=== PATIENT | male | born 1980 | race Caucasian/White ===

== ENCOUNTER 2017-07-16 01:41 | Day surgery (SDC) | payer SELFPAY ==
[~2017-07-16] VITALS: Ht 175.3 cm; Wt 99.8 kg
[~2017-07-16 01:41] MED LIST: BP MED; CIPR500T78 PO; CYCL10TA9 PO; HYDR-757 PO; ONDA-42 SL; PROM25SU10 PR
[2017-07-16] MEDS ORDERED: KETOROLAC 30 MG/ML VIAL IM ONE (02:15)
--- NOTE | 2017-07-16 02:15 | ED Back Pain ---
General Stated Complaint: KNOT AT BOTTOM OF SPINE Source of Information: Patient Exam Limitations: No Limitations History of Present Illness Time Seen by Provider: 02:05 Initial Comments Patient presents to ER by private conveyance with a chief complaint for the past 2 days she's had progressively worsening pain just over his butt crack with a small tumor that started about the size of a golf ball and has grown today to the half size of his face. Says the pain is excruciating he cannot sit on it and aspirate painful to walk. He's had no numbness, tingling, weakness, falls, trauma, incontinence of bowel or bladder or other paresthesias. It has not drained or the company head. He has taken Tylenol and Motrin which only marginally helps. He denies any fevers, chills, rash, shortness of breath, diarrhea, nausea. Allergies and Home Medications Allergies Coded Allergies: Penicillins (Verified Allergy, Mild, RASH, 06/28/12) Home Medications [Bp Med] , (Reported) Constitutional: No chills, No diaphoresis EENTM: No ear pain, No blurred vision Respiratory: No cough, No short of breath Genitourinary: No decreased output, No discharge, No dysuria Musculoskeletal: see HPI, No joint pain Skin: No pruritus, No rash Psychiatric/Neurological: Denies Headache, Denies Numbness, Denies Paresthesia Past Awmjbld-Hvwjhq-Obyjuq Hx Patient Social History Alcohol Use: Denies Use Recreational Drug Use: No Smoking Status: Current Everyday Smoker Type Used: Cigarettes (0.5 ppd) Recent Foreign Travel: No Contact w/Someone Who Travel: No Immunizations Up To Date Date of Influenza Vaccine: May 31, 2012 Cardiovascular Cardiac Disorders: Hypertension Physical Exam Vital Signs Vital Sign - Last 12Hours 07/16/17 01:58 Temp 99.2 Pulse 102 Resp 26 B/P (MAP) 137/58 (84) Pulse Ox 95 O2 Delivery Room Air Capillary Refill : General Appearance: WD/WN, Mild Distress HEENT: Normal ENT Inspection, Pharynx Normal Cardiovascular: No Edema, No Murmur Respiratory: No Accessory Muscle Use, No Respiratory Distress Peripheral Pulses: 2+ Dorsalis Pedis (R), 2+ Left Dors-Pedis (L), 2+ Radial Pulses (R), 2+ Radial Pulses (L) Gastrointestinal: Non Tender, Soft Genital/Rectal: Normal Rectal Exam Back: Other (4 x 6 cm firm, and mobile indurated very tender mass over the sacrum just at the superior portion of the gluteal cleft area there is no pore, discharge or erythema.) Extremity: Normal Capillary Refill, Non Tender Neurologic/Psychiatric: Alert, Oriented x3 Skin: Normal Color, Warm/Dry Progress/Results/Core Measures Results/Orders Lab Results Laboratory Tests Test 07/16/17 02:40 Range/Units White Blood Count 11.2 H 4.3-11.0 10^3/uL Red Blood Count 4.66 4.35-5.85 10^6/uL Hemoglobin 15.1 13.3-17.7 G/DL Hematocrit 42 40-54 % Mean Corpuscular Volume 90 80-99 FL Mean Corpuscular Hemoglobin 32 25-34 PG Mean Corpuscular Hemoglobin Concent 36 32-36 G/DL Red Cell Distribution Width 13.0 10.0-14.5 % Platelet Count 208 130-400 10^3/uL Mean Platelet Volume 9.0 7.4-10.4 FL Neutrophils (%) (Auto) 80 H 42-75 % Lymphocytes (%) (Auto) 10 L 12-44 % Monocytes (%) (Auto) 9 0-12 % Eosinophils (%) (Auto) 1 0-10 % Basophils (%) (Auto) 0 0-10 % Neutrophils # (Auto) 8.9 H 1.8-7.8 X 10^3 Lymphocytes # (Auto) 1.1 1.0-4.0 X 10^3 Monocytes # (Auto) 1.0 0.0-1.0 X 10^3 Eosinophils # (Auto) 0.2 0.0-0.3 10^3/uL Basophils # (Auto) 0.0 0.0-0.1 10^3/uL Sodium Level 138 135-145 MMOL/L Potassium Level 3.7 3.6-5.0 MMOL/L Chloride Level 106 98-107 MMOL/L Carbon Dioxide Level 21 21-32 MMOL/L Anion Gap 11 5-14 MMOL/L Blood Urea Nitrogen 18 7-18 MG/DL Creatinine 1.02 0.60-1.30 MG/DL Estimat Glomerular Filtration Rate > 60 BUN/Creatinine Ratio 18 Glucose Level 89 70-105 MG/DL Calcium Level 9.2 8.5-10.1 MG/DL Total Bilirubin 1.0 0.1-1.0 MG/DL Aspartate Amino Transf (AST/SGOT) 20 5-34 U/L Alanine Aminotransferase (ALT/SGPT) 36 0-55 U/L Alkaline Phosphatase 72 40-136 U/L Total Protein 6.8 6.4-8.2 GM/DL Albumin 3.9 3.2-4.5 GM/DL My Orders Orders - ALFA HOLLOWAY Ketorolac Injection (Toradol Injection) (07/16/17 02:15) Ct Abdomen/Pelvis Wo (07/16/17 02:06) Cbc With Automated Diff (07/16/17 02:15) Comprehensive Metabolic Panel (07/16/17 02:15) Lidocaine 2% Injection 20 Ml (Xylocaine (07/16/17 05:39) Medications Given in ED Current Medications Medications Dose Ordered Sig/Monika Route Start Time Stop Time Status Last Admin Dose Admin Ketorolac Tromethamine 15 mg ONCE ONCE IM 07/16/17 02:15 07/16/17 02:16 DC 07/16/17 02:16 15 MG Vital Signs/I&O Vital Sign - Last 12Hours 07/16/17 01:58 Temp 99.2 Pulse 102 Resp 26 B/P (MAP) 137/58 (84) Pulse Ox 95 O2 Delivery Room Air Progress Note #1: Time: 02:13 Progress Note first on the differential was an abscess however the lesion is fairly firm and fixed and an unusual place without any pore or discharge or erythema so for we open it would be de santiago to image it and see if tracks anywhere if it's an abscess or if it's a different lesion or malignancy. We'll get some basic blood work. Progress Note #2: Time: 06:09 Progress Note Patient is unable to tolerate an incision and drain or even to have the ring block started so we will talk General Surgery. Diagnostic Imaging Diagonstic Imaging: CT Plain Films/CT/US/NM/MRI: abdomen, pelvis Comments Soft tissue collection of the sacrococcygeal spine possible with peripheral wall thickening measuring 2.7 x 2 x 5.8 cm. There are surrounding inflammatory changes question infection or abscess, mass. Reviewed: Reviewed by Me Consults Consults : Consulting Physician: A Departure Communication (Admissions) Time/Spoke to Admitting Phy: 06:[address] Thapa will see the patient and get him into his surgery scheduled today. He would like him made observation Impression Impression: Primary Impression: Abscess Disposition: 09 ADMITTED INPATIENT Condition: Stable Admissions Decision to Admit Reason: Admit from ER (General) Decision to Admit/Date: Jul 16, 2017 Time/Decision to Admit Time: 06:12 Departure-Patient Inst. Referrals: SHREYA MCCARTHY MD (PCP/Family) Primary Care Physician Work/School Note: Work Release Form Date Seen in the Emergency Department: Jul 16, 2017 Return to Work: Jul 20, 2017 Restrictions: No Restrictions Copy Copies To 1: SHREYA MCCARTHY MD, TITUS J Jul 16, 2017 02:15
[2017-07-16 02:46] LABS: BASOPHILS % (AUTO) 0 % (0-10); EOSINOPHILS # (AUTO) 0.2 10^3/uL (0.0-0.3); EOSINOPHILS % (AUTO) 1 % (0-10); LYMPHOCYTES # (AUTO) 1.1 X 10^3 (1.0-4.0); LYMPHOCYTES % (AUTO) 10 % (12-44); MEAN CORPUSCULAR HEMOGLOBIN 32 PG (25-34); MEAN CORPUSCULAR HGB CONC 36 G/DL (32-36); MEAN CORPUSCULAR VOLUME 90 FL (80-99); MONOCYTES % (AUTO) 9 % (0-12); NEUTROPHILS # (AUTO) 8.9 X 10^3 (1.8-7.8); NEUTROPHILS % (AUTO) 80 % (42-75); PLATELET COUNT 208 10^3/uL (130-400); RED BLOOD COUNT 4.66 10^6/uL (4.35-5.85); WHITE BLOOD COUNT 11.2 10^3/uL (4.3-11.0)
[2017-07-16 03:16] LABS: ALANINE AMINOTRANSFERASE 36 U/L (0-55); ALBUMIN 3.9 GM/DL (3.2-4.5); ANION GAP 11 MMOL/L (5-14); ASPARTATE AMINO TRANSFERASE 20 U/L (5-34); BLOOD UREA NITROGEN 18 MG/DL (7-18); BUN/CREATININE RATIO 18; CALCIUM 9.2 MG/DL (8.5-10.1); CARBON DIOXIDE 21 MMOL/L (21-32); CHLORIDE 106 MMOL/L (98-107); CREATININE SERUM 1.02 MG/DL (0.60-1.30); GFR ESTIMATED > 60; GLUCOSE 89 MG/DL (70-105); POTASSIUM 3.7 MMOL/L (3.6-5.0); SODIUM 138 MMOL/L (135-145); TOTAL PROTEIN 6.8 GM/DL (6.4-8.2)
[2017-07-16] MEDS ORDERED: LIDOCAINE 2% 20 ML (XYLOCAINE) VIAL ONE (05:39)
[2017-07-16] MEDS ORDERED: fentaNYL INJECTION 100 MCG/2 ML AMP IVP ONE (06:15)
--- NOTE | 2017-07-16 06:32 | Diagnostic Imaging Report ---
PROCEDURE: CT abdomen and pelvis without contrast. TECHNIQUE: Multiple contiguous axial images were obtained through the abdomen and pelvis without the use of intravenous contrast. INDICATION: Palpable abnormality at base of spine with erythema Unenhanced images of the liver and spleen reveal no focal abnormality. There is no evidence of gallbladder, pancreatic or adrenal gland lesion. Tiny nonobstructing central renal calculi are seen bilaterally. There is no hydronephrosis or hydroureter. There is no evidence of ureteric stone. The appendix has a normal appearance. There are calcified phleboliths seen bilaterally in the pelvis. There is a focal region of induration superficial to the sacrococcygeal spine measuring approximately 2.7 x 2.0 x 5.8 cm. There is suggestion of central low density which may represent collection of fluid. There is no free fluid in the abdomen or pelvis. No other localized fluid collection is identified. IMPRESSION: No acute abnormality is seen within the abdomen or pelvis, however, there is a superficial area of induration and possible thickwalled fluid collection in the subcutaneous tissues at the level of the sacrum which corresponds to patient's abnormality. Abscess is not excluded. Dictated by: Dictated on workstation # [id number]
[2017-07-16] MEDS ORDERED: ONDANSETRON 4 MG/2 ML (SDV) Z0FRAN IV PRN (07:15)
[2017-07-16 08:00] VITALS: BP 122/73
[2017-07-16] MEDS ORDERED: CLINDAMYCIN INJECTION 600 MG in NS (IVPB) 50 ML IV SCH (09:00)
[2017-07-16] MEDS: LACTATED RINGERS 1,000 ML IV SCH ×3 (09:59→23:01)
[2017-07-16] MEDS: fentaNYL INJECTION 100 MCG/2 ML AMP IV PRN ×4 (10:13→23:01)
--- OUTSIDE RECORDS SUMMARY | 2017-07-16 10:28 | XMS REPORT ---
Author Author PRANAV TAYLOR Organization [facility] Address [address] [place] [address] Care Team Providers Care Director Of Reimbursement Name Role Phone PRANAV TAYLOR Unavailable PROBLEMS Unknown Problems ALLERGIES Substance Reaction Event Type Date Status Penicillin V Potassium Unknown Drug Allergy Jun, Active SOCIAL HISTORY No smoking Hx information available PLAN OF CARE Activity Details Follow Up prn Reason: VITAL SIGNS Height 68 in 2016-07-16 Weight 231 lbs 2016-07-16 Temperature 98.5 degrees Fahrenheit 2016-07-16 Heart Rate 100 bpm 2016-07-16 Respiratory Rate 18 2016-07-16 BMI 35.12 kg/m2 2016-07-16 Blood pressure systolic 140 mmHg 2016-07-16 Blood pressure diastolic 90 mmHg 2016-07-16 MEDICATIONS Medication Instructions Dosage Frequency Start Date End Date Duration Status Promethazine-Codeine 6.25-10 MG/5ML Orally every 6 hrs 5 ml as needed 6h Jun, Active GuaiFENesin ER 600 MG Orally every 12 hrs 1 tablet as needed 12h Jun, Active RESULTS Name Result Date Reference Range STREP A (IN HOUSE) 2016-07-16 STREP A negative Control + Lot # [id number] Exp date 02/21/2018 PROCEDURES Procedure Date Ordered Related Diagnosis Body Site STREP A ASSAY W/OPTIC Jul 16, 2016 Office Visit, Est Pt., Level 3 Jul 16, 2016 IMMUNIZATIONS No Known Immunizations
--- OUTSIDE RECORDS SUMMARY | 2017-07-16 10:28 | XMS REPORT | Continuity of Care Document ---
Author Author [facility] Address Unknown Phone Unavailable Allergies Active Description Code Type Severity Reaction Onset Reported/Identified Relationship to Patient Clinical Status Yes Penicillins Drug Allergy N/A N/A 07/24/2010 Yes Penicillins [id number] Drug Allergy Mild RASH 06/28/2012 Medications There is no data. Problems Date Dx Coded Attending Type Code Diagnosis Diagnosed By 07/24/2010 NIMO HODGES DO 682.9 CELLULITIS AND ABSCESS OF UNSPECIFIED SITES 04/18/2011 NIMO HODGES DO V04.81 FLU DX (3 YRS AND ABOVE, IM) 04/18/2011 NIMO HODGES DO V06.1 TDAP DX 02/14/2014 SHIELA SPANGLER, KAREN Nieves Ot 110.3 DERMATOPHYTOSIS OF GROIN 06/10/2014 ENDY SOMMER DO Ot 276.51 DEHYDRATION 06/10/2014 ENDY SOMMER DO Ot 558.9 NONINF GASTROENTERIT NEC 06/10/2014 ENDY SOMMER DO Ot 787.01 NAUSEA WITH VOMITING 07/28/2014 ORION FREEMAN APRN Ot 922.31 BACK CONTUSION 07/28/2014 ORION FREEMAN APRN Ot 959.19 OTH INJURY OF OTHER SITES OF TRUNK 07/28/2014 ORION FREEMAN APRN Ot E000.8 OTHER EXTERNAL CAUSE STATUS 07/28/2014 ORION FREEMAN APRN Ot E849.0 ACCIDENT IN HOME 07/28/2014 ORION FREEMAN APRN Ot E880.9 FALL ON STAIR/STEP NEC 04/08/2015 KIM MCCARTHY MD Ot 558.9 NONINF GASTROENTERIT NEC 04/08/2015 KIM MCCARTHY MD Ot 787.01 NAUSEA WITH VOMITING Procedures There is no data. Results Test Result Range Complete blood count (CBC) with automated white blood cell (WBC) differential - 07/16/17 02:40 Blood leukocytes automated count (number/volume) 11.2 10*3/uL 4.3-11.0 Blood erythrocytes automated count (number/volume) 4.66 10*6/uL 4.35-5.85 Venous blood hemoglobin measurement (mass/volume) 15.1 g/dL 13.3-17.7 Blood hematocrit (volume fraction) 42 % 40-54 Automated erythrocyte mean corpuscular volume 90 [foz_us] 80-99 Automated erythrocyte mean corpuscular hemoglobin (mass per erythrocyte) 32 pg 25-34 Automated erythrocyte mean corpuscular hemoglobin concentration measurement ( mass/volume) 36 g/dL 32-36 Automated erythrocyte distribution width ratio 13.0 % 10.0-14.5 Automated blood platelet count (count/volume) 208 10*3/uL 130-400 Automated blood platelet mean volume measurement 9.0 [foz_us] 7.4-10.4 Automated blood neutrophils/100 leukocytes 80 % 42-75 Automated blood lymphocytes/100 leukocytes 10 % 12-44 Blood monocytes/100 leukocytes 9 % 0-12 Automated blood eosinophils/100 leukocytes 1 % 0-10 Automated blood basophils/100 leukocytes 0 % 0-10 Blood neutrophils automated count (number/volume) 8.9 10*3 1.8-7.8 Blood lymphocytes automated count (number/volume) 1.1 10*3 1.0-4.0 Blood monocytes automated count (number/volume) 1.0 10*3 0.0-1.0 Automated eosinophil count 0.2 10*3/uL 0.0-0.3 Automated blood basophil count (count/volume) 0.0 10*3/uL 0.0-0.1 Comprehensive metabolic panel - 07/16/17 02:40 Serum or plasma sodium measurement (moles/volume) 138 mmol/L 135-145 Serum or plasma potassium measurement (moles/volume) 3.7 mmol/L 3.6-5.0 Serum or plasma chloride measurement (moles/volume) 106 mmol/L 98-107 Carbon dioxide 21 mmol/L 21-32 Serum or plasma anion gap determination (moles/volume) 11 mmol/L 5-14 Serum or plasma urea nitrogen measurement (mass/volume) 18 mg/dL 7-18 Serum or plasma creatinine measurement (mass/volume) 1.02 mg/dL 0.60-1.30 Serum or plasma urea nitrogen/creatinine mass ratio 18 NRG Serum or plasma creatinine measurement with calculation of estimated glomerular filtration rate > NRG Serum or plasma glucose measurement (mass/volume) 89 mg/dL 70-105 Serum or plasma calcium measurement (mass/volume) 9.2 mg/dL 8.5-10.1 Serum or plasma total bilirubin measurement (mass/volume) 1.0 mg/dL 0.1-1.0 Serum or plasma alkaline phosphatase measurement (enzymatic activity/volume) 72 U/L 40-136 Serum or plasma aspartate aminotransferase measurement (enzymatic activity/ volume) 20 U/L 5-34 Serum or plasma alanine aminotransferase measurement (enzymatic activity/volume ) 36 U/L 0-55 Serum or plasma protein measurement (mass/volume) 6.8 g/dL 6.4-8.2 Serum or plasma albumin measurement (mass/volume) 3.9 g/dL 3.2-4.5 Encounters ACCT No. Visit Date/Time Discharge Status Pt. Type Provider Facility Loc./Unit Complaint [id number] 06/02/2013 14:55:00 06/02/2013 23:59:59 CLS Outpatient NIMO HODGES DO [id number] 12/31/2015 11:15:00 12/31/2015 23:59:59 CLS Outpatient SHREYA MCCARTHY MD Via [facility] RAD [id number] 04/07/2015 22:24:00 04/08/2015 00:12:00 DIS Emergency KIM MCCARTHY MD Via [facility] ER [id number] 07/28/2014 13:10:00 07/28/2014 15:45:00 DIS Emergency ORION FREEMAN APRN [facility] ER [id number] 06/10/2014 04:49:00 06/10/2014 07:08:00 DIS Emergency ENDY SOMMER DO [facility] ER [id number] 02/14/2014 06:46:00 02/14/2014 08:39:00 DIS Emergency KAREN KUO MD [facility] ER [id number] 01/11/2013 14:16:00 01/11/2013 23:59:59 CLS Outpatient [id number] 07/16/2017 02:47:00 Document Registration
--- NOTE | 2017-07-16 11:18 | History & Physicial ---
History of Present Illness History of Present Illness Reason for visit/HPI pain and swelling over the sacral region with the finding of an abscess, requiring incision and drainage Date of Admission Jul 16, 2017 at 6:12 am Date Seen by Provider: Jul 16, 2017 Time Seen by Provider: 08:10 I consulted on this patient on 07/16/17 11:16 Attending Physician Mateusz Arnett MD Admitting Physician Misael Araiza MD Consult Allergies and Home Medications Allergies Coded Allergies: Penicillins (Verified Allergy, Mild, RASH, 06/28/12) Home Medications No Active Prescriptions or Reported Meds Past Mxjklub-Ddwonf-Mwkrdl Hx Patient Social History Marrital Status: Employed/Student: employed Alcohol Use: Denies Use Recreational Drug Use: No Smoking Status: Current Everyday Smoker Type Used: Cigarettes 2nd Hand Smoke Exposure: Yes Recent Foreign Travel: No Contact w/other who traveled: No Recent Hopitalizations: No Recent Infectious Disease Expo: No Immunizations Up To Date Date of Influenza Vaccine: May 31, 2012 Surgeries No Respiratory No Cardiovascular Yes Hypertension Neurological No Gastrointestinal No Musculoskeletal No Endocrine History of Endocrine Disorders: No Cancer No Psychosocial History of Psychiatric Problem: No Integumentary History of Skin or Integumenta: No Blood Transfusions History of Blood Disorders: No Constitutional: fever, malaise EENTM: no symptoms reported Respiratory: no symptoms reported Cardiovascular: no symptoms reported Gastrointestinal: see HPI Genitourinary: no symptoms reported Musculoskeletal: no symptoms reported Skin: see HPI Psychiatric/Neurological: No Symptoms Reported Physical Exam Vital Signs Vital Sign - Last 12Hours 07/16/17 01:58 Temp 99.2 Pulse 102 Resp 26 B/P (MAP) 137/58 (84) Pulse Ox 95 O2 Delivery Room Air Capillary Refill : Less Than 3 Seconds General Appearance: Moderate Distress HEENT: Normal ENT Inspection Neck: Normal Inspection Respiratory: Lungs Clear Cardiovascular: Regular Rate, Rhythm Gastrointestinal: Non Tender, Soft Rectal: Deferred Back: Normal Inspection Extremity: Normal Inspection Neurologic/Psychiatric: Alert, Oriented x3 Skin: Warm/Dry, Other Comments 3 cm abscess over the sacral region Assessment/Plan Assessment and Plan abscess over the sacral region Problems: MATEUSZ ARNETT MD Jul 16, 2017 11:18 am
--- NOTE | 2017-07-16 11:18 | Progress Note-Pre Operative ---
Pre-Operative Progress Note H&P Reviewed The H&P was reviewed, patient examined and no changes noted. Date Seen by Provider: Jul 16, 2017 Time Seen by Provider: 08:10 Date H&P Reviewed: Jul 16, 2017 Time H&P Reviewed: 11:18 Pre-Operative Diagnosis: Sacral abscess MATEUSZ ARNETT MD Jul 16, 2017 11:18 am
[2017-07-16 12:00] VITALS: BP 122/61
[2017-07-16] MEDS ORDERED: fentaNYL INJECTION 250 MCG/5 ML AMP ONE (14:29)
[2017-07-16] MEDS ORDERED: MIDAZOLAM 2 MG/2 ML (VERSED) VIAL ONE (14:29)
--- NOTE | 2017-07-16 15:06 | Operative Report ---
Operative Report Date of Procedure/Surgery Jul 16, 2017 Surgeon (s) MATEUSZ ARNETT MD Pigment Making Supervisor (s): N/A Post-Operative Diagnosis Same Procedure Performed Incision and drainage Description of Procedure Anesthesia Type: General Estimated blood loss (mL): Minimal Specimen(s) collected/removed Pus for culture and sensitivity Description of the Procedure Indication for the procedure: This young man presented with an abscess over the sacral region, requiring formal incision and drainage. Informed consent was obtained after reviewing the procedure in detail. Description of procedure: He was initially placed supine on the bed and general anesthesia induced. Subsequently, he was placed in right lateral decubitus position, to achieve reasonable exposure of the involved area. After adequate antiseptic preparation, a 3 cm vertical incision was made and the abscess cavity evacuated. Hemostasis was achieved using cautery and and a Ana drain left in the cavity to promote preoperative drainage. It was secured using a silk suture. A nonadherent dressing was then applied He tolerated the procedure well, was to turned supine before being extubated and taken to the recovery room in a stable condition. Findings of the Procedure See op report Allergies and Home Medications Allergies Coded Allergies: Penicillins (Verified Allergy, Mild, RASH, 06/28/12) Home Medications No Active Prescriptions or Reported Meds MATEUSZ ARNETT MD Jul 16, 2017 3:06 pm
[2017-07-16] MEDS ORDERED: HYDR-3812 PO (15:08)
--- NOTE | 2017-07-16 15:09 | Discharge Inst-Simple/Standard ---
Discharge Inst-Standard Discharge Medications New, Converted or Re-Newed RX: RX on Chart Patient Instructions/Follow Up Plan of Care/Instructions/FU: Change dressing with an AVD pad once or twice a day. Follow-up with my nurse in a week to have the drain removed Activity as Tolerated: Yes Discharge Diet: No Restrictions MATEUSZ ARNETT MD Jul 16, 2017 3:09 pm
[2017-07-16] MEDS ORDERED: SEVOFLURANE (ULTANE) 15 ML INHAL SOLN ONE (15:14)
[2017-07-16] MEDS ORDERED: proPOfol 200 MG/20 ML (DIPRIVAN) VIAL IV ONE (15:14)
[2017-07-16] MEDS ORDERED: LIDOCAINE PF 2% 5 ML (XYLOCAINE) VIAL ONE (15:14)
[2017-07-16] MEDS ORDERED: DEXAMETHASONE 10 MG/ML (DECADRON) 1 ML VIAL ONE (15:14)
[2017-07-16] MEDS ORDERED: fentaNYL INJECTION 100 MCG/2 ML AMP IVP PRN (15:15)
[2017-07-16] MEDS ORDERED: ONDANSETRON 4 MG/2 ML (SDV) Z0FRAN IVP PRN (15:15)
[2017-07-16] MEDS ORDERED: CATHETER FLUSH 10 ML SYR IV PRN (15:30)
[2017-07-16] MEDS: HYDROmorphone (DILAUDID) 2 MG/ML VIAL IVP PRN ×2 (15:45→15:55)
[2017-07-16 17:00] VITALS: BP 118/76
[2017-07-16] MEDS: CLINDAMYCIN INJECTION 600 MG in NS (IVPB) 50 ML IV SCH (17:52)
[2017-07-16] MEDS: HYDROcodone/APAP 7.5 MG/325 MG (LORTAB, LORCET PLUS) TABLET PO PRN (19:28)
[2017-07-16 20:00] VITALS: BP 121/64
[2017-07-17 00:15] VITALS: BP 124/69
[2017-07-17] MEDS: HYDROcodone/APAP 7.5 MG/325 MG (LORTAB, LORCET PLUS) TABLET PO PRN ×2 (01:34→07:32)
[2017-07-17] MEDS: CLINDAMYCIN INJECTION 600 MG in NS (IVPB) 50 ML IV SCH ×2 (02:02→09:02)
[2017-07-17 04:00] VITALS: BP 131/77
[2017-07-17 08:05] VITALS: BP 125/55
[2017-07-17] MEDS ORDERED: INFLUENZA TRIvalent 2017-2018 0.5 ML/45 MCG SYR IM ONE (08:30)
[2017-07-17] MEDS: LACTATED RINGERS 1,000 ML IV SCH (09:02)
[2017-07-17 10:30] VITALS: BP 125/55
--- NOTE | 2017-07-17 10:55 | Progress Note-Standard ---
Standard Progress Note Progress Notes/Assess & Plan Date Seen by Provider: Jul 17, 2017 Time Seen by Provider: 09:58 Progress/Assessment & Plan pain control adequate. Afebrile. Could be discharged home Final Diagnosis sacral abscess MATEUSZ ARNETT MD Jul 17, 2017 10:55 am
--- OUTSIDE RECORDS SUMMARY | 2017-07-17 14:47 | XMS REPORT | Continuity of Care Document ---
Author Author Replaced By [facility] Address Unknown Phone Unavailable Allergies Active Description Code Type Severity Reaction Onset Reported/Identified Relationship to Patient Clinical Status Yes Penicillins Drug Allergy N/A N/A 07/24/2010 Yes Penicillins [id number] Drug Allergy Mild RASH 06/28/2012 Medications There [...] plasma albumin measurement (mass/volume) 3.9 g/dL 3.2-4.5 Gram stain microscopy - 07/16/17 14:52 GRAM STAIN RESULT FEW GRAM POS COCCI IN CHAINS (STREP OR RELATED GENUS) NRG Bacteria identification in wound by culture - 07/16/17 14:52 Bacteria identification in wound by culture [id number] NRG QUANTITY OF GROWTH Abundant Growth NRG Encounters ACCT No. Visit Date/Time Discharge Status Pt. Type Provider Facility Loc./Unit Complaint [id number] 06/02/2013 14:55:00 06/02/2013 23:59:59 CLS Outpatient NIMO HODGES DO [id number] 12/31/2015 11:15:00 12/31/2015 23:59:59 CLS Outpatient SHREYA MCCARTHY MD Via [facility] RAD [id number] 04/07/2015 22:24:00 04/08/2015 00:12:00 DIS Emergency KIM MCCARTHY MD [facility] ER [id number] 07/28/2014 13:10:00 07/28/2014 15:45:00 DIS Emergency ORION FREEMAN APRN [facility] ER [id number] 06/10/2014 04:49:00 06/10/2014 07:08:00 DIS Emergency ENDY SOMMER DO [facility] ER [id number] 02/14/2014 06:46:00 02/14/2014 08:39:00 DIS Emergency KAREN KUO MD Via [facility] [id number] 01/11/2013 14:16:00 01/11/2013 23:59:59 [facility] Outpatient [id number] 07/16/2017 02:47:00 Document Registration
== END 2017-07-17 10:20 | disposition home or self-care (01) ==
LOC: EDUNIT# 01:41 → ER 01:43 → 4TH 06:12 → UNDOADMOB 06:12 → SDC 06:12 → 4TH 06:12 → SDC 07-17 10:20 → UNDODISOB 07-17 10:20
PROVIDERS: ATTEND Surgery
DX: L02.31 Cutaneous abscess of buttock (principal); I10 Essential (primary) hypertension; F17.210 Nicotine dependence, cigarettes, uncomplicated
CPT/HCPCS: 36415; 74176; 80053; 85025; 87070; 87075; 87081; 87101; 87116; 87205

== ENCOUNTER 2017-07-28 09:03 | Emergency (ER) | payer SELFPAY ==
[~2017-07-28] VITALS: Ht 177.8 cm; Wt 108.9 kg
[~2017-07-28 09:03] MED LIST changes: +ACHD5005 PO
--- NOTE | 2017-07-28 09:37 | Diagnostic Imaging Report ---
INDICATION: Puncture wound. COMPARISON: 01/11/2013. FINDINGS: Three views of the left hand are obtained. No acute fracture, malalignment, or osseous destructive process is seen. No radiopaque foreign bodies are demonstrated. IMPRESSION: Negative left hand. Dictated by: Dictated on workstation # [id number]
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
[2017-07-28] MEDS ORDERED: CLINDAMYCIN 600 MG/4ML (CLEOCIN) VIAL IM ONE (11:00)
[2017-07-28] MEDS ORDERED: SULF1TAB35 PO (11:02)
[2017-07-28] MEDS: KETOROLAC 60 MG/2 ML VIAL IM ONE ×2 (11:07→11:12)
[2017-07-28 11:26] VITALS: BP 145/107
== END 2017-07-28 11:25 | disposition home or self-care (01) ==
LOC: EDUNIT# 09:03 → EEVIPCON 09:05 → ER 09:05
DX: S61.432A Puncture wound without foreign body of left hand, initial encounter (principal); T81.89XA Other complications of procedures, not elsewhere classified, initial encounter; I10 Essential (primary) hypertension; F17.210 Nicotine dependence, cigarettes, uncomplicated; Z91.14 Patient's other noncompliance with medication regimen; W29.8XXA Contact with other powered hand tools and household machinery, initial encounter
CPT/HCPCS: 73130; 99284

== ENCOUNTER 2017-11-22 05:48 | Emergency (ER) | payer OTHER ==
[~2017-11-22] VITALS: Ht 177.8 cm; Wt 108.9 kg
[~2017-11-22 05:48] MED LIST changes: +SULF1TAB35 PO
[2017-11-22] MEDS ORDERED: KETOROLAC 60 MG/2 ML VIAL IM ONE (07:00)
[2017-11-22 07:06] LABS: BILIRUBIN,URINE 1+ (NEGATIVE); CLARITY,URINE VERY CLOUDY; COLOR,URINE OTHER; GLUCOSE, URINE (UA) NEGATIVE (NEGATIVE); KETONES,URINE 1+ (NEGATIVE); LEUKOCYTE ESTERASE ,URINE 2+ (NEGATIVE); NITRITE,URINE POSITIVE (NEGATIVE); PH,URINE 5 (5-9); PROTEIN,URINE 3+ (NEGATIVE); UROBILINOGEN,URINE 1 MG/DL (NORMAL)
--- NOTE | 2017-11-22 07:08 | ED General ---
General Chief Complaint: General Problems/Pain Stated Complaint: LOWER BACK PAIN URINE DARK Nursing Triage Note: c/o L flank pain and dark urine. Nursing Sepsis Screen: No Definite Risk Source of Information: Patient Exam Limitations: No Limitations History of Present Illness Date Seen by Provider: Nov 22, 2017 Time Seen by Provider: 07:06 Initial Comments The patient is a 37-year-old white male who presents with complaint of left flank pain and dark urine. He reports he was awakened about 04 30 with this pain. It is a past history of kidney stone about 10 years ago. There is radiation towards the pubis Timing/Duration: 1-3 Hours Allergies and Home Medications Allergies Coded Allergies: Penicillins (Verified Allergy, Mild, RASH, 06/28/12) Home Medications No Active Prescriptions or Reported Meds Patient Home Medication List Home Medication List Reviewed: Yes Review of Systems Constitutional: see HPI EENTM: no symptoms reported Respiratory: no symptoms reported Cardiovascular: no symptoms reported Gastrointestinal: no symptoms reported Genitourinary: see HPI Musculoskeletal: no symptoms reported Skin: no symptoms reported Psychiatric/Neurological: No Symptoms Reported Past Dolhfwd-Beekan-Qexqji Hx Patient Social History Alcohol Use: Denies Use Recreational Drug Use: No Type Used: Cigarettes 2nd Hand Smoke Exposure: Yes Recent Foreign Travel: No Contact w/Someone Who Travel: No Recent Infectious Disease Expo: No Recent Hopitalizations: No Physical Abuse: No Sexual Abuse: No Immunizations Up To Date Date of Influenza Vaccine: May 31, 2012 Past Medical History Surgeries: Yes ( ABSCESS IN BACK ) Respiratory: No Cardiac: Yes Hypertension Neurological: No Genitourinary: No Gastrointestinal: No Musculoskeletal: No Endocrine: No HEENT: No Cancer: No Psychosocial: No Nursing Suicide Risk Score: 0 Integumentary: No Blood Disorders: No Physical Exam Vital Signs Vital Signs - First Documented 11/22/17 05:55 Temp 96.8 Pulse 93 Resp 18 B/P (MAP) 121/79 (93) Pulse Ox 99 Capillary Refill : Less Than 3 Seconds General Appearance: Mild Distress, Moderate Distress Eyes: Bilateral Eye Normal Inspection HEENT: Normal ENT Inspection Neck: Normal Inspection Respiratory: Chest Non Tender, Lungs Clear, Normal Breath Sounds, No Accessory Muscle Use, No Respiratory Distress Cardiovascular: Regular Rate, Rhythm, No Edema, No Gallop, No JVD, No Murmur, Normal Peripheral Pulses Gastrointestinal: Normal Bowel Sounds, No Organomegaly, No Pulsatile Mass, Non Tender, Soft Back: CVA Tenderness (L) Extremity: Normal Capillary Refill, Normal Inspection, Normal Range of Motion, Non Tender, No Calf Tenderness, No Pedal Edema Neurologic/Psychiatric: Alert, Oriented x3, No Motor/Sensory Deficits, Normal Mood/Affect Skin: Normal Color Lymphatic: No Adenopathy Progress/Results/Core Measures Suspected Sepsis Recent Fever Within 48 Hours: No Infection Criteria Present: None New/Unexplained Altered Menta: No Sepsis Screen: No Definite Risk SIRS Temperature:96.8 Pulse: 93 Respiratory Rate: 18 Blood Pressure 121 /79 Mean: 93 Results/Orders Lab Results Laboratory Tests Test 11/22/17 06:58 Range/Units Urine Color OTHER H Urine Clarity VERY CLOUDY H Urine pH 5 5-9 Urine Specific [place] 1.025 H 1.016-1.022 Urine Protein 3+ H NEGATIVE Urine Glucose (UA) NEGATIVE NEGATIVE Urine Ketones 1+ H NEGATIVE Urine Nitrite POSITIVE H NEGATIVE Urine Bilirubin 1+ H NEGATIVE Urine Urobilinogen 1 NORMAL MG/DL Urine Leukocyte Esterase 2+ H NEGATIVE Urine RBC (Auto) 5+ H NEGATIVE Urine RBC TNTC H /HPF Urine WBC 50-100 H /HPF Urine Squamous Epithelial Cells NONE /HPF Urine Crystals NONE /LPF Urine Bacteria LARGE H /HPF Urine Casts NONE /LPF Urine Mucus MODERATE H /LPF Urine Culture Indicated YES My Orders Orders - NEMESIO DORMAN MD Ketorolac Injection (Toradol Injection) (11/22/17 07:00) Ct Abd/Pelvis Wo(Kidney Stone) (11/22/17 07:05) Hydromorphone Injection (Dilaudid Inject (11/22/17 07:45) Ns Iv 1000 Ml (Sodium Chloride 0.9%) (11/22/17 07:45) Hydromorphone Injection (Dilaudid Inject (11/22/17 07:43) Medications Given in ED Current Medications Medications Dose Ordered Sig/Monika Route Start Time Stop Time Status Last Admin Dose Admin Hydromorphone HCl 2 mg STK-MED ONCE .ROUTE 11/22/17 07:43 11/22/17 07:47 DC 11/22/17 07:48 1 MG Ketorolac Tromethamine 60 mg ONCE ONCE IM 11/22/17 07:00 11/22/17 07:01 DC 11/22/17 06:58 60 MG Vital Signs/I&O 11/22/17 05:55 Temp 96.8 Pulse 93 Resp 18 B/P (MAP) 121/79 (93) Pulse Ox 99 Capillary Refill : Less Than 3 Seconds Blood Pressure Mean: 93 Departure Communication (Admissions) 0739. By my reading there is a 6.8 mm stone in the distal ureter proximal to the UV junction. In addition it appears there is a smaller stone just distal to the renal pelvis. Radiology interpretation is pending. 08 15 the radiologist reported that there were stones in both the right and left proximal ureters at about 3 mm. I discussed with with him by phone the question of what the distal calcification was. He believes that almost certainly this is a phlebolith. Discussed with Dr. Powell at 0830. The patient is to come to his office tomorrow for further planning. Impression Primary Impression: hematuria Additional Impression: proximal ureteral stones Disposition: HOME, SELF-CARE Condition: Stable/Unchanged Departure-Patient Inst. Decision time for Depature: 08:24 Referrals: SHREYA MCCARTHY MD (PCP/Family) Primary Care Physician Add. Discharge Instructions: All discharge instructions reviewed with patient and/or family. Voiced understanding. Lots of liquids Strain all urine Hydrocodone for pain Call Dr. Powell office, [phone], in the morning for appointment Scripts Oxycodone HCl (Oxycodone HCl) 10 Mg Tablet 10 MG PO every 4 hours PRN for pain, #20 TAB Prov: NEMESIO DORMAN MD 11/22/17 NEMESIO DORMAN MD Nov 22, 2017 07:08
[2017-11-22 07:28] LABS: RBC,URINE TNTC /HPF
[2017-11-22 07:29] LABS: BACTERIA,URINE LARGE /HPF; WBC,URINE 50-100 /HPF
--- NOTE | 2017-11-22 07:38 | Diagnostic Imaging Report ---
PROCEDURE: CT urinary tract, rule out kidney stone. TECHNIQUE: Multiple contiguous axial images were obtained through the abdomen and pelvis without the use of intravenous contrast. DATE: 11/22/2017. COMPARISON: CT abdomen and pelvis 07/16/2017. INDICATION: A 37-year-old male, left flank pain. History of renal stones. FINDINGS: There are limitations for evaluation of the abdominal organs, neoplastic processes, abscess, and limited evaluation of the vasculature relating to the lack of intravenous contrast. The visualized portions of the lungs are clear. The heart is not enlarged. There is no identified pericardial effusion. The liver is normal in size and contour. There is a 4 mm low-attenuation lesion in the right lobe of the liver on axial image 47 which is too small to characterize. The gallbladder is contracted. There is no intrahepatic or extrahepatic bile duct dilation. The main pancreatic duct is not abnormally dilated. The pancreatic parenchyma is unremarkable. The spleen is normal in size. The adrenal glands are unremarkable. There is a stone in the right proximal ureter on axial image 79 which measures 3.1 mm in size. There is a stone in the left proximal ureter on axial image 82 which measures 3.0 mm in size. There is no additional identified ureteral stone. There is no hydronephrosis. The urinary bladder is unremarkable in appearance. There are pelvic calcifications compatible with phleboliths. There is mild diverticulosis without evidence of acute diverticulitis. The intestinal tract is not distended. The appendix is well seen on axial image 126 and adjacent sequential images. This is also well seen on coronal image 54 and adjacent sequential images. The appendix is normal. The intestinal tract is not distended. There is no free intraperitoneal air. No drainable fluid collection. There is no free pelvic fluid. There are subcentimeter short axis retroperitoneal lymph nodes. There is no identified abnormally enlarged lymph node within the abdomen or pelvis which meets CT size criteria for adenopathy. There is a 4 mm sclerotic bone lesion in the left femoral neck, which may relate to benign bone island although is not specific. There is no identified acute bony abnormality. IMPRESSION: CT ABDOMEN AND PELVIS. 1. 3 mm stones in the right and left proximal ureters without hydronephrosis. 2. Mild diverticulosis without evidence of acute diverticulitis. Dictated by: Dictated on workstation # [id number]
[2017-11-22] MEDS ORDERED: HYDROmorphone 2 MG/ML VIAL (DILAUDID) ONE (07:43)
[2017-11-22] MEDS ORDERED: NS IV 1000 ML 1,000 ML IV SCH (07:45)
[2017-11-22] MEDS ORDERED: HYDROmorphone 1 MG/ML (DILAUDID) 1 ML SYRINGE IV ONE (07:45)
[2017-11-22] MEDS ORDERED: OXYC10TA7 PO (08:50)
[2017-11-22 09:02] VITALS: BP 152/81
[2017-11-23] MEDS ORDERED: ONDA4TAB8 PO (18:28)
[2017-11-23] MEDS ORDERED: HYDR-87 PO (18:28)
[2017-11-23] MEDS ORDERED: TAMS0.4C98 PO (18:28)
== END 2017-11-22 09:02 | disposition home or self-care (01) ==
LOC: EDUNIT# 05:48 → ER 05:50
DX: N20.1 Calculus of ureter (principal); I10 Essential (primary) hypertension; Z87.2 Personal history of diseases of the skin and subcutaneous tissue; Z77.22 Contact with and (suspected) exposure to environmental tobacco smoke (acute) (chronic)
CPT/HCPCS: 74176; 81000; 87088; 96372

== ENCOUNTER → 2017-11-26 | Outpatient (CLI) | payer OTHER ==
[~2017-11-26] MED LIST changes: +HYDR-87 PO; +KETO10TA PO; +NITR-65 PO; +ONDA4TAB8 PO; +OXYC10TA7 PO; +TAMS0.4C98 PO
--- NOTE | 2017-11-26 15:37 | Diagnostic Imaging Report ---
INDICATION: Ureteral stones. Comparison is made with prior exam from 11/23/2017. FINDINGS: The bowel gas pattern is unremarkable. No definite radiopaque renal calculi are seen. No calcifications along the course of the ureters is seen. There are pelvic calcifications which appear stable to prior exam. IMPRESSION: Stable KUB when compared with examination from 11/23/2017. Dictated by: Dictated on workstation # [id number]
== END ==
LOC: RAD 14:44
PROVIDERS: ATTEND Urology
DX: N20.1 Calculus of ureter (principal)
CPT/HCPCS: 74018

== ENCOUNTER 2017-11-30 05:40 | Outpatient (CLI) | payer SELFPAY ==
[~2017-11-30] VITALS: Ht 180.3 cm; Wt 108.9 kg
[~2017-11-30 05:40] MED LIST changes: -KETO10TA PO; -NITR-65 PO
== END 2017-11-30 15:52 ==
LOC: PREOP 05:40
PROVIDERS: ATTEND Urology
DX: Z01.818 Encounter for other preprocedural examination (principal); N20.1 Calculus of ureter

== ENCOUNTER 2017-12-01 10:16 | Day surgery (SDC) | payer OTHER ==
[~2017-12-01] VITALS: Ht 180.3 cm; Wt 108.9 kg
--- OUTSIDE RECORDS SUMMARY | 2017-12-01 10:29 | XMS REPORT | Continuity of Care Document ---
Author Author [facility] Address Unknown Phone Unavailable Allergies Active Description Code Type Severity Reaction Onset Reported/Identified Relationship to Patient Clinical Status Yes Penicillins Drug Allergy N/A N/A 07/24/2010 Yes Penicillins [id number] Drug Allergy Mild RASH 06/28/2012 Medications There [...] ENDY SOMMER DO Ot 276.51 DEHYDRATION 06/10/2014 NEDY SOMMER DO Ot 558.9 NONINF GASTROENTERIT NEC 06/10/2014 ENDY SOMMER DO Ot 787.01 NAUSEA WITH VOMITING 07/28/2014 ORION FREEMAN APRN Ot 922.31 BACK CONTUSION 07/28/2014 ORION FREEMAN APRN Ot 959.19 OTH INJURY OF OTHER SITES OF TRUNK 07/28/2014 ORION FREEMAN V BELT FINISHER Ot E000.8 OTHER EXTERNAL CAUSE STATUS 07/28/2014 ORION FREEMAN V BELT FINISHER Ot E849.0 ACCIDENT IN HOME 07/28/2014 ORION FREEMAN V BELT FINISHER Ot E880.9 FALL ON STAIR/STEP NEC 04/08/2015 KIM MCCARTHY MD Ot 558.9 NONINF GASTROENTERIT NEC 04/08/2015 KIM MCCARTHY MD Ot 787.01 NAUSEA WITH VOMITING 07/16/2017 FABIO SPANGLER, SHREYA Nieves Ot R05 COUGH 07/16/2017 FABIO SPANGLER, SHREYA Nieves Ot R06.00 DYSPNEA, UNSPECIFIED 07/17/2017 HOPE SPANGLER, MATEUSZ Aragon Ot F17.210 NICOTINE DEPENDENCE, CIGARETTES, UNCOMPL 07/17/2017 HOPE SPANGLER, MATEUSZ Aragon Ot I10 ESSENTIAL (PRIMARY) HYPERTENSION 07/17/2017 HOPE SPANGLER, MATEUSZ Aragon Ot L02.31 CUTANEOUS ABSCESS OF BUTTOCK 07/22/2017 SHREYA MCCARTHY MD Ot R05 COUGH 07/22/2017 SHREYA MCCARTHY MD Ot R06.00 DYSPNEA, UNSPECIFIED 07/22/2017 HOPE SPANGLER, MATEUSZ Aragon Ot F17.210 NICOTINE DEPENDENCE, CIGARETTES, UNCOMPL 07/22/2017 HOPE SPANGLER, MATEUSZ Aragon Ot I10 ESSENTIAL (PRIMARY) HYPERTENSION 07/22/2017 HOPE SPANGLER, MATEUSZ Aragon Ot L02.31 CUTANEOUS ABSCESS OF BUTTOCK 07/25/2017 HOPE SPANGLER, MATEUSZ Aragon Ot F17.210 NICOTINE DEPENDENCE, CIGARETTES, UNCOMPL 07/25/2017 HOPE SPANGLER, MATEUSZ Aragon Ot I10 ESSENTIAL (PRIMARY) HYPERTENSION 07/25/2017 HOPE SPANGLER, MATEUSZ Aragon Ot L02.31 CUTANEOUS ABSCESS OF BUTTOCK 07/28/2017 SHREYA MCCARTHY MD Ot R05 COUGH 07/28/2017 SHREYA MCCARTHY MD Ot R06.00 DYSPNEA, UNSPECIFIED 07/28/2017 ROBINSON RODARTE MD Ot F17.210 NICOTINE DEPENDENCE, CIGARETTES, UNCOMPL 07/28/2017 ROBINSON RODARTE MD Ot I10 ESSENTIAL (PRIMARY) HYPERTENSION 07/28/2017 ROBINSON RODARTE MD Ot S61.432A PUNCTURE WOUND W/O FOREIGN BODY OF LEFT 07/28/2017 ROBINSON RODARTE MD Ot T81.89XA OTH COMPLICATIONS OF PROCEDURES, NEC, IN 07/28/2017 ROBINSON RODARTE MD Ot W29.8XXA CNTCT WITH OTHER POWERED HAND TOOLS AND 07/28/2017 ROBINSON RODARTE MD Ot Z91.14 PATIENT'S OTHER NONCOMPLIANCE WITH MEDIC 07/28/2017 SHREYA MCCARTHY MD Ot R05 COUGH 07/28/2017 SHREYA MCCARTHY MD Ot R06.00 DYSPNEA, UNSPECIFIED 11/22/2017 NEMESIO DORMAN MD, Ot I10 ESSENTIAL (PRIMARY) HYPERTENSION 11/22/2017 NEMESIO DORMAN MD Ot N20.1 CALCULUS OF URETER 11/22/2017 NEMESIO DORMAN MD Ot R10.9 UNSPECIFIED ABDOMINAL PAIN 11/22/2017 NEMESIO DORMAN MD, Ot Z77.22 CNTCT W AND EXPSR TO ENVIRON TOBACCO SMO 11/22/2017 NEMESIO DORMAN MD Ot Z87.2 PERSONAL HISTORY OF DISEASES OF THE SKIN 11/23/2017 KEMAL DOENDY K Ot F17.210 NICOTINE DEPENDENCE, CIGARETTES, UNCOMPL 11/23/2017 KEMAL DO ENDY K Ot I10 ESSENTIAL (PRIMARY) HYPERTENSION 11/23/2017 KEMAL DO ENDY K Ot N20.1 CALCULUS OF URETER 11/23/2017 KEMAL DO ENDY K Ot R10.9 UNSPECIFIED ABDOMINAL PAIN 11/23/2017 KEMAL ENDY K Ot Z87.2 PERSONAL HISTORY OF DISEASES OF THE SKIN 11/23/2017 KEMAL ENDY K Ot Z88.0 ALLERGY STATUS TO PENICILLIN 11/23/2017 KEMAL JOSUEA K Ot Z98.890 OTHER SPECIFIED POSTPROCEDURAL STATES 11/24/2017 NEMESIO DORMAN MD, Ot I10 ESSENTIAL (PRIMARY) HYPERTENSION 11/24/2017 NEMESIO DORMAN MD, Ot N20.1 CALCULUS OF URETER 11/24/2017 NEMESIO DORMAN MD Ot R10.9 UNSPECIFIED ABDOMINAL PAIN 11/24/2017 NEMESIO DORMAN MD, Ot Z77.22 CNTCT W AND EXPSR TO ENVIRON TOBACCO SMO 11/24/2017 NEMESIO DORMAN MD, Ot Z87.2 PERSONAL HISTORY OF DISEASES OF THE SKIN 11/26/2017 SHREYA MCCARTHY MD Ot R05 COUGH 11/26/2017 SHREYA MCCARTHY MD Ot R06.00 DYSPNEA, UNSPECIFIED 11/27/2017 ROBINSON RODARTE MD, Ot F17.210 NICOTINE DEPENDENCE, CIGARETTES, UNCOMPL 11/27/2017 ROBINSON RODARTE MD, Ot I10 ESSENTIAL (PRIMARY) HYPERTENSION 11/27/2017 ROBINSON RODARTE MD, Ot S61.432A PUNCTURE WOUND W/O FOREIGN BODY OF LEFT 11/27/2017 ROBINSON RODARTE MD, Ot T81.89XA OTH COMPLICATIONS OF PROCEDURES, NEC, IN 11/27/2017 ROBINSON RODARTE MD, Ot W29.8XXA CNTCT WITH OTHER POWERED HAND TOOLS AND 11/27/2017 CAYDEN SPANGLER, ROBINSON Williamson Ot Z91.14 PATIENT'S OTHER NONCOMPLIANCE WITH MEDIC 11/27/2017 NEMESIO DORMAN MD Ot I10 ESSENTIAL (PRIMARY) HYPERTENSION 11/27/2017 NEMESIO DORMAN MD Ot N20.1 CALCULUS OF URETER 11/27/2017 NEMESIO DORMAN MD Ot R10.9 UNSPECIFIED ABDOMINAL PAIN 11/27/2017 NEMESIO DORMAN MD Ot Z77.22 CNTCT W AND EXPSR TO ENVIRON TOBACCO SMO 11/27/2017 NEMESIO DORMAN MD, Ot Z87.2 PERSONAL HISTORY OF DISEASES OF THE SKIN 11/27/2017 KEMALJOSUE Garcia DOA Wang Ot F17.210 NICOTINE DEPENDENCE, CIGARETTES, UNCOMPL 11/27/2017 KEMALENDY Garcia DO Ot I10 ESSENTIAL (PRIMARY) HYPERTENSION 11/27/2017 ENDY SOMMER DO Ot N20.1 CALCULUS OF URETER 11/27/2017 ENDY SOMMER DO Ot R10.9 UNSPECIFIED ABDOMINAL PAIN 11/27/2017 ENDY SOMMER DO Ot Z87.2 PERSONAL HISTORY OF DISEASES OF THE SKIN 11/27/2017 JOSUE SOMMER DOA Wang Ot Z88.0 ALLERGY STATUS TO PENICILLIN 11/27/2017 JOSUE SOMMER DOA Wang Ot Z98.890 OTHER SPECIFIED POSTPROCEDURAL STATES 11/27/2017 RASHIDA SPANGLER, JULIETH Nelson Ot N20.1 CALCULUS OF URETER Procedures There is no data. Results Test [...] plasma albumin measurement (mass/volume) 3.9 g/dL 3.2-4.5 Methicillin resistant Staphylococcus aureus (MRSA) screening culture - 07:38 Methicillin resistant Staphylococcus aureus (MRSA) screening culture NEG NRG Bacteria identification in isolate by anaerobe culture - 07/16/17 14:52 Bacteria identification in isolate by anaerobe culture NOANA NRG Gram stain microscopy - 07/16/17 14:52 GRAM STAIN RESULT FEW GRAM POS COCCI IN CHAINS (STREP OR RELATED GENUS) NRG Bacteria identification in wound by culture - 07/16/17 14:52 Bacteria identification in wound by culture [id number] NRG QUANTITY OF GROWTH Abundant Growth NRG Mycobacterium species detection by organism specific culture - 07/16/17 14:52 Mycobacterium species detection by organism specific culture TNP: Duplicate Order NRG Fungus culture - 07/16/17 14:52 FUNGUS REPORT NO FUNGUS GROWTH OBSERVED NRG Complete urinalysis with reflex to culture - 11/22/17 06:58 Urine color determination OTHER NRG Urine clarity determination VERY CLOUDY NRG Urine pH measurement by test strip 5 5-9 Specific gravity of urine by test strip 1.025 1.016- 1.022 Urine protein assay by test strip, semi-quantitative 3+ NEGATIVE Urine glucose detection by automated test strip NEGATIVE NEGATIVE Erythrocytes detection in urine sediment by light microscopy 5+ NEGATIVE Urine ketones detection by automated test strip 1+ NEGATIVE Urine nitrite detection by test strip POSITIVE NEGATIVE Urine total bilirubin detection by test strip 1+ NEGATIVE Urine urobilinogen measurement by automated test strip (mass/volume) 1 mg/dL NORMAL Urine leukocyte esterase detection by dipstick 2+ NEGATIVE Automated urine sediment erythrocyte count by microscopy (number/high power field) TNTC NRG Automated urine sediment leukocyte count by microscopy (number/high power field ) [HPF] NRG Bacteria detection in urine sediment by light microscopy LARGE NRG Squamous epithelial cells detection in urine sediment by light microscopy NONE NRG Crystals detection in urine sediment by light microscopy NONE NRG Casts detection in urine sediment by light microscopy NONE NRG Mucus detection in urine sediment by light microscopy MODERATE NRG Complete urinalysis with reflex to culture YES NRG Bacterial urine culture - 11/22/17 06:58 Bacterial urine culture NG NRG Complete urinalysis with reflex to culture - 11/23/17 16:47 Urine color determination YELLOW NRG Urine clarity determination CLEAR NRG Urine pH measurement by test strip 6 5-9 Specific gravity of urine by test strip 1.015 1.016- 1.022 Urine protein assay by test strip, semi-quantitative NEGATIVE NEGATIVE Urine glucose detection by automated test strip NEGATIVE NEGATIVE Erythrocytes detection in urine sediment by light microscopy 5+ NEGATIVE Urine ketones detection by automated test strip NEGATIVE NEGATIVE Urine nitrite detection by test strip NEGATIVE NEGATIVE Urine total bilirubin detection by test strip NEGATIVE NEGATIVE Urine urobilinogen measurement by automated test strip (mass/volume) NORMAL NORMAL Urine leukocyte esterase detection by dipstick NEGATIVE NEGATIVE Automated urine sediment erythrocyte count by microscopy (number/high power field) TNTC NRG Automated urine sediment leukocyte count by microscopy (number/high power field ) RARE NRG Bacteria detection in urine sediment by light microscopy NEGATIVE NRG Crystals detection in urine sediment by light microscopy NONE NRG Casts detection in urine sediment by light microscopy NONE NRG Mucus detection in urine sediment by light microscopy SMALL NRG Complete urinalysis with reflex to culture NO NRG Complete blood count (CBC) with automated white blood cell (WBC) differential - 11/23/17 16:53 Blood leukocytes automated count (number/volume) 5.4 10*3/uL 4.3-11.0 Blood erythrocytes automated count (number/volume) 4.32 10*6/uL 4.35-5.85 Venous blood hemoglobin measurement (mass/volume) 14.0 g/dL 13.3-17.7 Blood hematocrit (volume fraction) 38 % 40-54 Automated erythrocyte mean corpuscular volume 89 [foz_us] 80-99 Automated erythrocyte mean corpuscular hemoglobin (mass per erythrocyte) 32 pg 25-34 Automated erythrocyte mean corpuscular hemoglobin concentration measurement ( mass/volume) 37 g/dL 32-36 Automated erythrocyte distribution width ratio 13.6 % 10.0-14.5 Automated blood platelet count (count/volume) 230 10*3/uL 130-400 Automated blood platelet mean volume measurement 9.1 [foz_us] 7.4-10.4 Automated blood neutrophils/100 leukocytes 57 % 42-75 Automated blood lymphocytes/100 leukocytes 33 % 12-44 Blood monocytes/100 leukocytes 6 % 0-12 Automated blood eosinophils/100 leukocytes 3 % 0-10 Automated blood basophils/100 leukocytes 1 % 0-10 Blood neutrophils automated count (number/volume) 3.1 10*3 1.8-7.8 Blood lymphocytes automated count (number/volume) 1.8 10*3 1.0-4.0 Blood monocytes automated count (number/volume) 0.3 10*3 0.0-1.0 Automated eosinophil count 0.2 10*3/uL 0.0-0.3 Automated blood basophil count (count/volume) 0.0 10*3/uL 0.0-0.1 Comprehensive metabolic panel - 11/23/17 16:53 Serum or plasma sodium measurement (moles/volume) 142 mmol/L 135-145 Serum or plasma potassium measurement (moles/volume) 3.8 mmol/L 3.6-5.0 Serum or plasma chloride measurement (moles/volume) 110 mmol/L 98-107 Carbon dioxide 25 mmol/L 21-32 Serum or plasma anion gap determination (moles/volume) 7 mmol/L 5-14 Serum or plasma urea nitrogen measurement (mass/volume) 11 mg/dL 7-18 Serum or plasma creatinine measurement (mass/volume) 1.02 mg/dL 0.60-1.30 Serum or plasma urea nitrogen/creatinine mass ratio 11 NRG Serum or plasma creatinine measurement with calculation of estimated glomerular filtration rate > NRG Serum or plasma glucose measurement (mass/volume) 112 mg/dL 70-105 Serum or plasma calcium measurement (mass/volume) 8.9 mg/dL 8.5-10.1 Serum or plasma total bilirubin measurement (mass/volume) 0.7 mg/dL 0.1-1.0 Serum or plasma alkaline phosphatase measurement (enzymatic activity/volume) 51 U/L 40-136 Serum or plasma aspartate aminotransferase measurement (enzymatic activity/ volume) 27 U/L 5-34 Serum or plasma alanine aminotransferase measurement (enzymatic activity/volume ) 42 U/L 0-55 Serum or plasma protein measurement (mass/volume) 6.7 g/dL 6.4-8.2 Serum or plasma albumin measurement (mass/volume) 4.0 g/dL 3.2-4.5 Serum or plasma amylase measurement (enzymatic activity/volume) - 11/23/17 16: 53 Serum or plasma amylase measurement (enzymatic activity/volume) 45 U /L 25-125 Lipase - 11/23/17 16:53 Lipase 21 U/L 8-78 Encounters ACCT No. Visit Date/Time Discharge Status Pt. Type Provider Facility Loc./Unit Complaint [id number] 06/02/2013 14:55:00 06/02/2013 23:59:59 CLS Outpatient CARROLL NIMO MARIE [id number] 11/26/2017 14:44:00 11/26/2017 23:59:59 CLS Outpatient JULIETH FIELD MD [facility] [address] RAD BILATERAL UERTERS STONES [id number] 11/23/2017 16:33:00 11/23/2017 19:09:00 DIS Emergency KEMAL ENDY MARIE [facility] [address] ER KIDNEY STONES [id number] 11/22/2017 05:50:00 11/22/2017 09:02:00 DIS Emergency NEMESIO DORMAN MD [facility] [address] ER LOWER BACK PAIN URINE DARK [id number] 07/28/2017 09:05:00 07/28/2017 11:25:00 DIS Outpatient CAYDEN SPANGLER, ROBINSON Williamson [facility] [address] ER DRILL INJ TO LEFT HAND [id number] 07/16/2017 06:12:00 07/17/2017 10:20:00 DIS Outpatient HOPE SPANGLER, MATEUSZ Aragon [facility] [address] SDC ABSCESS ON COCCYX [id number] 12/31/2015 11:15:00 12/31/2015 23:59:59 CLS Outpatient SHREYA MCCARTHY MD [facility] [address] RAD COUGH [id number] 04/07/2015 22:24:00 04/08/2015 00:12:00 DIS Emergency KIM MCCARTHY MD [facility] [address] ER VOMITING AND DIARRHEA [id number] 07/28/2014 13:10:00 07/28/2014 15:45:00 DIS Emergency ORION FREEMAN APRN [facility] [address] ER FALL, BACK AND NECK PAIN [id number] 06/10/2014 04:49:00 06/10/2014 07:08:00 DIS Emergency ENDY SOMMER DO [facility] [address] ER N/V/D;FEVER;LIGHT HEADED [id number] 02/14/2014 06:46:00 02/14/2014 08:39:00 DIS Emergency SHIELA SPANGLER, KAREN Nieves [facility] [address] ER GROIN AREA PROBLEM [id number] 01/11/2013 14:16:00 01/11/2013 23:59:59 CLS Outpatient [id number] 12/01/2017 11:00:00 PEN Preadmit RASHIDA SPANGLER, JULIETH Nelson [facility] [address] SDC BILATERAL URETERAL STONE
[2017-12-01] MEDS ORDERED: LEVOFLOXACIN 500 MG/100 ML IV 100 ML IV ONE (10:30)
--- NOTE | 2017-12-01 10:45 | Progress Note-Pre Operative ---
Pre-Operative Progress Note H&P Reviewed The H&P was reviewed, patient examined and no changes noted. Date Seen by Provider: December 01, 2017 Time Seen by Provider: 10:44 Date H&P Reviewed: December 01, 2017 Time H&P Reviewed: 10:44 Pre-Operative Diagnosis: BILATERAL PROXIMAL URETERAL STONES AND POSSIBLE LT DISTAL URETERAL STONE JULIETH FIELD MD December 01, 2017 10:45 am
--- NOTE | 2017-12-01 10:55 | Diagnostic Imaging Report ---
INDICATION: Preoperative evaluation for renal calculus. COMPARISON: 11/26/2017 and 11/23/2017. FINDINGS: Two supine radiographic views of the abdomen and pelvis were obtained. Small calculi are again identified in the regions of the bilateral ureteropelvic junctions bilaterally, right slightly greater than left. These are stable in position compared to prior exams. Pelvic phlebolith is also again noted on the left. Small bowel loops are nondistended. There is no large collection of free intraperitoneal air. No unexpected radiopaque foreign bodies are seen. Bony structures show no gross acute abnormalities. IMPRESSION: 1. Redemonstration of calculi at the bilateral ureteropelvic junctions. Again, these are essentially stable in position. Dictated by: Dictated on workstation # [id number]
[2017-12-01 11:00] VITALS: BP 144/96
[2017-12-01] MEDS: LACTATED RINGERS 1,000 ML IV PRN ×2 (11:09→14:00)
--- NOTE | 2017-12-01 12:34 | Progress Note-Post Operative ---
Post-Operative Progess Note Surgeon (s)/Anhydrous Ammonia Production Supervisor (s) Surgeon JULIETH FIELD MD Anhydrous Ammonia Production Supervisor: N/A Pre-Operative Diagnosis BILATERAL PROXIMAL URETERAL STONES AND POSSIBLE LT DISTAL URETERAL STONE Post-Operative Diagnosis SAME Procedure & Operative Findings Date of Procedure 12/01/17 Procedure Performed/Findings CYSTO, BILATERAL URETERAL CATH. WITH LT RETROGRADE UROGRAM, AND BILATERAL ESWL Anesthesia Type GENERAL Estimated Blood Loss Estimated blood loss (mL): N/A Specimens/Packing Specimens Removed N/A Packing: N/A JULIETH FIELD MD December 01, 2017 12:34 pm
--- NOTE | 2017-12-01 12:36 | Discharge Inst-Urology ---
Discharge Inst-Urology Discharge Medications New, Converted, or Re-newed RX: RX on Chart Patient Instructions/Follow Up Plan Please make appointment to been seen in office Thursday 12/14, KUB prior to it KUB on way home Post ESWL instructions Increase oral fluids for 48 hours and then as needed. Diet and Activity as tolerated. If questions or concerns contact your physician Or seek help at emergency department. JULIETH FIELD MD December 01, 2017 12:36 pm
[2017-12-01] MEDS ORDERED: DEXAMETHASONE 10 MG/ML (DECADRON) 1 ML VIAL ONE (12:42)
[2017-12-01] MEDS ORDERED: ONDANSETRON 4 MG/2 ML (SDV) Z0FRAN ONE (12:42)
[2017-12-01] MEDS ORDERED: SEVOFLURANE (ULTANE) 15 ML INHAL SOLN ONE (12:42)
[2017-12-01] MEDS ORDERED: proPOfol 200 MG/20 ML (DIPRIVAN) VIAL IV ONE (12:42)
[2017-12-01] MEDS ORDERED: LIDOCAINE PF 2% 5 ML (XYLOCAINE) VIAL ONE ×2 (12:42→13:10)
[2017-12-01] MEDS ORDERED: MIDAZOLAM 2 MG/2 ML (VERSED) VIAL ONE (12:43)
[2017-12-01] MEDS ORDERED: fentaNYL INJECTION 100 MCG/2 ML AMP ONE ×2 (12:43→14:09)
[2017-12-01] MEDS ORDERED: ROCURONIUM 10 MG/ML 5 ML SYRINGE IV ONE (12:46)
[2017-12-01] MEDS ORDERED: FUROSEMIDE 40 MG/4 ML INJ (LASIX) ONE (13:47)
[2017-12-01] MEDS ORDERED: KETOROLAC 30 MG/ML VIAL ONE (13:47)
[2017-12-01] MEDS ORDERED: ONDANSETRON 4 MG/2 ML (SDV) Z0FRAN IVP PRN (14:30)
[2017-12-01] MEDS ORDERED: morphine INJ 10 MG/ML 1ML (SYR OR VIAL) IVP PRN (14:30)
[2017-12-01] MEDS ORDERED: GLYCOPYRROLATE 0.2 MG/ML (ROBINUL) 2 ML VIAL ONE (14:33)
[2017-12-01] MEDS ORDERED: NEOSTIGMINE 1 MG/ML 5 ML SYRINGE ONE (14:33)
[2017-12-01 15:25] VITALS: BP 133/91
--- NOTE | 2017-12-01 15:36 | Anesthesia-General Post-Op ---
General Patient Condition Mental Status/LOC: Same as Preop Cardiovascular: Satisfactory Nausea/Vomiting: Absent Respiratory: Satisfactory Pain: Controlled Complications: Absent Post Op Complications Complications None Follow Up Care/Instructions Patient Instructions None needed. Anesthesia/Patient Condition Patient Condition Patient is doing well, no complaints, stable vital signs, no apparent adverse anesthesia problems. ALANNA BENDER DO December 01, 2017 15:36
[2017-12-01 16:00] VITALS: BP 147/98
[2017-12-01] MEDS ORDERED: oxyCODONE/APAP 5/325MG (PERCOCET 5) TABLET ONE (16:26)
[2017-12-01] MEDS ORDERED: HYDROcodone/APAP 5 MG/325 MG (LORTAB) TAB PO NR (16:29)
[2017-12-01 16:30] VITALS: BP 142/92
--- NOTE | 2017-12-01 16:36 | Diagnostic Imaging Report ---
INDICATION: Status post ESWL. COMPARISON: Earlier same day. FINDINGS: Two supine radiographic views of the abdomen were obtained. Previously described punctate opacity in the region of the left UPJ can no longer be identified. The 4-5 mm calculus at the right UPJ is in stable position. Pelvic phleboliths are again noted. No unexpected radiopaque foreign bodies are seen. Small bowel loops are nondistended. There is no large collection of free intraperitoneal air. Bony structures show no acute abnormalities. IMPRESSION: 1. Punctate calculus at the left UPJ is no longer identified. Findings could be on the basis of interval fragmentation. 2. Right UPJ calculus is in stable position. Dictated by: Dictated on workstation # [id number]
[2017-12-01 17:00] VITALS: BP 142/92
--- NOTE | 2017-12-02 02:04 | OPERATIVE REPORT ---
DATE OF SERVICE: 12/01/2017 PREOPERATIVE DIAGNOSIS: Bilateral proximal ureteral stone, possible left distal ureteral stone. POSTOPERATIVE DIAGNOSIS: Bilateral proximal ureteral stone, possible left distal ureteral stone. OPERATION PROCEDURE: Cystoscopy with bilateral ureteral catheterization, bilateral retrograde urogram and bilateral ESWL. SURGEON: Florian Field MD. ANESTHESIA: General. COMPLICATIONS: None. DESCRIPTION OF PROCEDURE: Under satisfactory general anesthesia, the patient in lithotomy position on the cystoscopy table, genitalia were prepped and draped in usual sterile fashion. A 23-Norwegian cystoscope was introduced in the bladder and urethra was normal. The prostate was not significantly obstructing and the bladder neck was open. The bladder revealed no trabeculations. Ureteric orifices normal in shape, size and configuration with clear efflux bilaterally. I went ahead and passed a ureteral catheter into the left ureteral orifice guided fluoroscopically to rule out the calcification in the pelvis to be in the ureter, indeed a phlebolith. I went all the way up to the stone. A stone was sitting at the UPJ junction. I left the ureteral catheter just distal to it and then passed another catheterization the other side to the level of the stone in the proximal ureter and I removed the cystoscope after emptying the bladder, taped the catheter to the leg, moved the patient to the ESWL table. We went ahead and we were able to visualize the left proximal ureteral stone, delivered 1000 shocks at kV of 5 and we injected contrast to confirm no filling defect at all and very nice emptying of the system as we withdrew the catheter, 1200 shocks were delivered totally. Then, we rotated the table and addressed the right proximal ureteral stone and again using the same technique 2000 shocks completely fragment the stone and excellent clearance of the contrast from the kidney. I ended the procedure at this point. I removed the ureteral catheters. The patient received 40 mg of Lasix and 30 mg of Toradol IV at the end of the procedure. He tolerated the procedure and anesthesia well and was sent to recovery room in stable condition. Job ID: [id number] DocumentID: [id number] Dictated Date: 12/01/2017 14:20:47 [employer] Specialist Date: 12/02/2017 02:03:29 Dictated By: FLORIAN FIELD MD
== END 2017-12-01 17:00 | disposition home or self-care (01) ==
LOC: SDC 10:16
PROVIDERS: ATTEND Urology
DX: N20.1 Calculus of ureter (principal); I10 Essential (primary) hypertension
CPT/HCPCS: 74018; 87081

== ENCOUNTER 2017-12-07 21:31 | Emergency (ER) | payer SELFPAY ==
[~2017-12-07] VITALS: Ht 180.3 cm; Wt 108.9 kg
[2017-12-07] MEDS ORDERED: KETOROLAC 30 MG/ML VIAL IVP STA (21:36)
[2017-12-07] MEDS ORDERED: LACTATED RINGERS 1,000 ML IV ONE (21:36)
[2017-12-07] MEDS ORDERED: ALFUZOSIN HCL 10 MG TAB (UROXATRAL) PO SCH (21:45)
[2017-12-07 21:48] LABS: BASOPHILS % (AUTO) 0 % (0-10); EOSINOPHILS # (AUTO) 0.1 10^3/uL (0.0-0.3); EOSINOPHILS % (AUTO) 1 % (0-10); HEMATOCRIT 39 % (40-54); HEMOGLOBIN 14.5 G/DL (13.3-17.7); LYMPHOCYTES # (AUTO) 2.4 X 10^3 (1.0-4.0); LYMPHOCYTES % (AUTO) 25 % (12-44); MEAN CORPUSCULAR HEMOGLOBIN 32 PG (25-34); MEAN CORPUSCULAR HGB CONC 37 G/DL (32-36); MEAN CORPUSCULAR VOLUME 87 FL (80-99); MEAN PLATELET VOLUME 9.1 FL (7.4-10.4); MONOCYTES # (AUTO) 0.7 X 10^3 (0.0-1.0); MONOCYTES % (AUTO) 7 % (0-12); NEUTROPHILS # (AUTO) 6.3 X 10^3 (1.8-7.8); NEUTROPHILS % (AUTO) 66 % (42-75); PLATELET COUNT 275 10^3/uL (130-400); RED BLOOD COUNT 4.53 10^6/uL (4.35-5.85); RED CELL DISTRIBUTION WIDTH 12.9 % (10.0-14.5); WHITE BLOOD COUNT 9.5 10^3/uL (4.3-11.0)
--- NOTE | 2017-12-07 21:58 | Diagnostic Imaging Report ---
PROCEDURE: CT urinary tract, rule out kidney stone. TECHNIQUE: Multiple contiguous axial images were obtained through the abdomen and pelvis without the use of intravenous contrast. INDICATION: Right-sided abdominal pain Lung bases are clear. There is fatty infiltration of the liver. Gallbladder appears normal. Pancreas normal. Spleen is not enlarged. Adrenals are normal. Left kidney is normal. There is mild hydronephrosis of the right kidney. There is a 5 mm stone in the right proximal ureter. Large and small intestines are normal. Appendix normal. There is no intraperitoneal free air or free fluid. Urinary bladder is normal. IMPRESSION: A 5 mm stone right proximal ureter causing mild hydronephrosis of the right kidney. Dictated by: Dictated on workstation # [id number]
--- NOTE | 2017-12-07 22:02 | Diagnostic Imaging Report ---
INDICATION: Right groin pain Bowel gas pattern is normal. There are no masses seen. There are no pathologic calcifications. IMPRESSION: Negative KUB Dictated by: Dictated on workstation # [id number]
[2017-12-07 22:10] LABS: ALBUMIN 4.6 GM/DL (3.2-4.5); BILIRUBIN,TOTAL 1.5 MG/DL (0.1-1.0); CALCIUM 9.8 MG/DL (8.5-10.1); CREATININE SERUM 1.4 MG/DL (0.60-1.30); POTASSIUM 3.7 MMOL/L (3.6-5.0); TOTAL PROTEIN 7.2 GM/DL (6.4-8.2)
[2017-12-07] MEDS ORDERED: NS IV 1000 ML 1,000 ML IV ONE (22:39)
[2017-12-07] MEDS ORDERED: TAMS0.4C98 PO (22:55)
[2017-12-07] MEDS ORDERED: NITR-65 PO (22:55)
[2017-12-07] MEDS ORDERED: KETO10TA PO (22:55)
[2017-12-07] MEDS ORDERED: ONDA4TAB8 PO (22:55)
--- NOTE | 2017-12-07 22:55 | ED GU-Male ---
General Chief Complaint: Abdominal/GI Problems Stated Complaint: ABD PAIN Nursing Triage Note: c/o R groin pain. patient reports having kidney stone removed last week and being released from work today. patient reports going to work for about 3 to 4 hours before he had to leave work due to pain Source: patient History of Present Illness Date Seen by Provider: December 07, 2017 Time Seen by Provider: 21:30 Initial Comments PT ARRIVES VIA EMS FROM HOME PT C/O RIGHT GROIN PAIN PT WAS SEEN HERE 11/22 AND 11/23 AND DX WITH KIDNEY STONE, AND HAD LITHOTRIPSY 12/01/[address] FIELD STATES HE HAD PAIN AND HEMATURIA THE FIRST COUPLE OF DAYS, BUT HAS NOT HAD ANY PAIN SINCE STATES HE FELT FINE ALL DAY AND DID NOT HAVE ANY PAIN, AND STATES HE CALLED DR. FIELD AND HE RELEASED HIM TO GO BACK TO WORK ( HAS NOT SEEN DR. FIELD SINCE PROCEDURE AND DOES NOT HAVE A FOLLOW UP APPOINTMENT) PT STATES HE HAD BEEN AT WORK FOR 3-4 HOURS AND HE BEGAN HAVING PAIN IN RIGHT GROIN AREA, AND HAD TO LEAVE WORK DUE TO PAIN PT LATER STATES HE TOOK A PAIN PILL THIS MORNING BECAUSE HE WAS HAVING SOME PAIN ( AFTER PREVIOUSLY STATING THAT HE HAD NOT HAD ANY PAIN AT ALL TODAY ) HAS NOT TAKEN ANYTHING ELSE FOR PAIN TODAY=--DOES HAVE MORE PAIN MEDICATION AT HOME--OXYCODONE + HYDROCODONE NO NAUSEA NO PROBLEMS URINATING NO BACK PAIN NO FEVER HAS HAD KIDNEY STONE X 1, MANY YEARS AGO. NO INTERVENTION. PCP: DR. MCCARTHY UROLOGIST: DR. FIELD Allergies and Home Medications Allergies Coded Allergies: levofloxacin (Unverified Allergy, Intermediate, HIVES AND WELTS AT AND ABOVE IV SITE, 12/01/17) Penicillins (Verified Allergy, Mild, RASH, 06/28/12) Home Medications Hydrocodone/Ibuprofen 1 Each Tablet, 1-2 EACH PO Q4H Prescribed by: ENDY SOMMER on 11/23/171827 Ketorolac Tromethamine 10 Mg Tablet, 10 MG PO Q6H Prescribed by: ENDY SOMMER on 12/07/172254 Nitrofurantoin Monohyd/M-Cryst 100 Mg Capsule, 100 MG PO BID Prescribed by: ENDY SOMMER on 12/07/172254 Ondansetron 4 Mg Tab.rapdis, 1-2 MG PO Q4H Prescribed by: ENDY SOMMER on 11/23/171827 Ondansetron 4 Mg Tab.rapdis, 4-8 MG PO Q4H Prescribed by: ENDY SOMMER on 12/07/172254 Oxycodone HCl 10 Mg Tablet, 10 MG PO every 4 hours PRN for pain Prescribed by: NEMESIO DORMAN on 11/22/17 0850 Tamsulosin HCl 0.4 Mg Cap, 0.4 MG PO DAILY Prescribed by: ENDY SOMMER on 11/23/171827 Tamsulosin HCl 0.4 Mg Cap, 0.4 MG PO DAILY Prescribed by: ENDY SOMMER on 12/07/172254 Patient Home Medication List Home Medication List Reviewed: Yes Review of Systems Constitutional: no symptoms reported Respiratory: no symptoms reported Cardiovascular: no symptoms reported Gastrointestinal: see HPI Genitourinary: see HPI Musculoskeletal: no symptoms reported Skin: no symptoms reported Psychiatric/Neurological: No Symptoms Reported Endocrine: No Symptoms Reported Hematologic/Lymphatic: No Symptoms Reported Past Llvgykx-[id number]-Fyfwpr Hx Patient Social History Alcohol Use: Denies Use Recreational Drug Use: No Smoking Status: Current Everyday Smoker (1 PPD) Type Used: Cigarettes 2nd Hand Smoke Exposure: Yes Recent Foreign Travel: No Contact w/Someone Who Travel: No Recent Infectious Disease Expo: No Recent Hopitalizations: No Physical Abuse: No Sexual Abuse: No Immunizations Up To Date Tetanus Booster (TDap): Unknown Date of Influenza Vaccine: May 31, 2012 Seasonal Allergies Seasonal Allergies: No Past Medical History Surgeries: Yes (ABSCESS ON BACK ;LITHOTRIPSY 12/01/17-DR. FIELD) Renal Respiratory: No Cardiac: Yes Hypertension Neurological: No Reproductive Disorders: No Genitourinary: Yes Kidney Stones Gastrointestinal: No Musculoskeletal: No Endocrine: No HEENT: No Loss of Vision: Denies Hearing Impairment: Denies Cancer: No Psychosocial: No Nursing Suicide Risk Score: 0 Integumentary: No Blood Disorders: No Physical Exam Vital Signs Vital Signs - First Documented 12/07/17 21:34 Temp 98.2 Pulse 98 Resp 18 B/P (MAP) 142/90 (107) Pulse Ox 98 Capillary Refill : Less Than 3 Seconds General Appearance: WD/WN, no apparent distress Cardiovascular: regular rate, rhythm, no edema, no JVD, no murmur Respiratory: normal breath sounds, no respiratory distress, no accessory muscle use Gastrointestinal: normal bowel sounds, soft, no organomegaly, no pulsatile mass , tenderness (RIGHT INGUINAL AREA) Back: normal inspection, no CVA tenderness Extremities: normal inspection, no pedal edema, no calf tenderness, normal capillary refill 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, no motor/sensory deficits, alert, normal mood/affect, oriented x 3 Skin: normal color, warm/dry, tattoos/piercings (EXTENSIVE TATTOOS) Progress/Results/Core Measures Suspected Sepsis Recent Fever Within 48 Hours: No Infection Criteria Present: None New/Unexplained Altered Menta: No Sepsis Screen: No Definite Risk SIRS Temperature:98.2 Pulse: 98 Respiratory Rate: 18 Laboratory Tests 12/07/17 21:36: White Blood Count 9.5 Blood Pressure 142 /90 Mean: 107 Laboratory Tests 12/07/17 21:36: Creatinine 1.40H, Platelet Count 275, Total Bilirubin 1.5H Results/Orders Lab Results Laboratory Tests Test 12/07/17 21:36 12/07/17 23:26 Range/Units White Blood Count 9.5 4.3-11.0 10^3/uL Red Blood Count 4.53 4.35-5.85 10^6/uL Hemoglobin 14.5 13.3-17.7 G/DL Hematocrit 39 L 40-54 % Mean Corpuscular Volume 87 80-99 FL Mean Corpuscular Hemoglobin 32 25-34 PG Mean Corpuscular Hemoglobin Concent 37 H 32-36 G/DL Red Cell Distribution Width 12.9 10.0-14.5 % Platelet Count 275 130-400 10^3/uL Mean Platelet Volume 9.1 7.4-10.4 FL Neutrophils (%) (Auto) 66 42-75 % Lymphocytes (%) (Auto) 25 12-44 % Monocytes (%) (Auto) 7 0-12 % Eosinophils (%) (Auto) 1 0-10 % Basophils (%) (Auto) 0 0-10 % Neutrophils # (Auto) 6.3 1.8-7.8 X 10^3 Lymphocytes # (Auto) 2.4 1.0-4.0 X 10^3 Monocytes # (Auto) 0.7 0.0-1.0 X 10^3 Eosinophils # (Auto) 0.1 0.0-0.3 10^3/uL Basophils # (Auto) 0.0 0.0-0.1 10^3/uL Sodium Level 142 135-145 MMOL/L Potassium Level 3.7 3.6-5.0 MMOL/L Chloride Level 109 H 98-107 MMOL/L Carbon Dioxide Level 20 L 21-32 MMOL/L Anion Gap 13 5-14 MMOL/L Blood Urea Nitrogen 18 7-18 MG/DL Creatinine 1.40 H 0.60-1.30 MG/DL Estimat Glomerular Filtration Rate 58 BUN/Creatinine Ratio 13 Glucose Level 93 70-105 MG/DL Calcium Level 9.8 8.5-10.1 MG/DL Total Bilirubin 1.5 H 0.1-1.0 MG/DL Aspartate Amino Transf (AST/SGOT) 23 5-34 U/L Alanine Aminotransferase (ALT/SGPT) 38 0-55 U/L Alkaline Phosphatase 57 40-136 U/L Total Protein 7.2 6.4-8.2 GM/DL Albumin 4.6 H 3.2-4.5 GM/DL Amylase Level 32 25-125 U/L Lipase 14 8-78 U/L Urine Color MAYANK H Urine Clarity SLIGHTLY CLOUDY Urine pH 5 5-9 Urine Specific [place] 1.025 H 1.016-1.022 Urine Protein 3+ H NEGATIVE Urine Glucose (UA) NEGATIVE NEGATIVE Urine Ketones 2+ H NEGATIVE Urine Nitrite NEGATIVE NEGATIVE Urine Bilirubin 1+ H NEGATIVE Urine Urobilinogen NORMAL NORMAL MG/DL Urine Leukocyte Esterase 1+ H NEGATIVE Urine RBC (Auto) 5+ H NEGATIVE Urine RBC TNTC H /HPF Urine WBC 50-100 H /HPF Urine Crystals NONE /LPF Urine Bacteria MODERATE H /HPF Urine Casts NONE /LPF Urine Mucus N /LPF Urine Culture Indicated YES Urine Opiates Screen NEGATIVE NEGATIVE Urine Oxycodone Screen NEGATIVE NEGATIVE Urine Methadone Screen NEGATIVE NEGATIVE Urine Propoxyphene Screen NEGATIVE NEGATIVE Urine Barbiturates Screen NEGATIVE NEGATIVE Ur Tricyclic Antidepressants Screen NEGATIVE NEGATIVE Urine Phencyclidine Screen NEGATIVE NEGATIVE Urine Amphetamines Screen POSITIVE H NEGATIVE Urine Methamphetamines Screen POSITIVE H NEGATIVE Urine Benzodiazepines Screen NEGATIVE NEGATIVE Urine Cocaine Screen NEGATIVE NEGATIVE Urine Cannabinoids Screen NEGATIVE NEGATIVE My Orders Orders - ENDY SOMMER DO Ct Abd/Pelvis Wo(Kidney Stone) (12/07/17 21:36) Amylase (12/07/17 21:36) Cbc With Automated Diff (12/07/17 21:36) Comprehensive Metabolic Panel (12/07/17 21:36) Lipase (12/07/17 21:36) Ua Culture If Indicated (12/07/17 21:36) Saline Lock/Iv-Start (12/07/17 21:36) Ketorolac Injection (Toradol Injection) (12/07/17 21:36) Saline Lock/Iv-Start (12/07/17 21:36) Lactated Ringers (Lr 1000 Ml Iv Solution (12/07/17 21:36) Alfuzosin (Not Stocked) (Uroxatral (Not (12/07/17 21:45) Abdomen/Kub 1[place] (12/07/17 21:36) Drug Screen Stat (Urine) (12/07/17 22:11) Saline Lock/Iv-Start (12/07/17 22:39) Ns Iv 1000 Ml (Sodium Chloride 0.9%) (12/07/17 22:39) Fentanyl Injection (Sublimaze Injection (12/07/17 23:10) Urine Culture (12/07/17 23:26) Rx-Nitrofurantoin Lamb (Rx-Macrobid) (12/08/17 00:10) Medications Given in ED Current Medications Medications Dose Ordered Sig/Monika Route Start Time Stop Time Status Last Admin Dose Admin Lactated Ringer's 1,000 ml @ 0 mls/hr Q0M ONCE IV 12/07/17 21:36 12/07/17 21:39 DC 12/07/17 21:43 0 MLS/HR Vital Signs/I&O 12/07/17 21:34 Temp 98.2 Pulse 98 Resp 18 B/P (MAP) 142/90 (107) Pulse Ox 98 Capillary Refill : Less Than 3 Seconds Blood Pressure Mean: 107 Progress Note : Progress Note COMPLETE PAIN RELIEF AT DISMISSAL Diagnostic Imaging Comments KUB--NO ACUTE PROCESS, PENDING RADIOLOGIST REVIEW CT ABDOMEN/PELVIS--5 MM STONE IN RIGHT PROXIMAL URETER WITH MILD RIGHT HYDRONEPHROSIS--PER RADIOLOGIST REPORT @ 2210 Reviewed: Reviewed by Me Departure Impression Primary Impression: Right ureteral stone Disposition: HOME, SELF-CARE Condition: Improved Departure-Patient Inst. Referrals: JULIETH FIELD MD, JOHN D MD (PCP/Family) Primary Care Physician Patient Instructions: Kidney Stones (DC) Add. Discharge Instructions: LOTS OF CLEAR LIQUIDS TAKE YOUR PAIN MEDICATION PRESCRIBED FOLLOW UP WITH DR. FIELD THIS WEEK FOR FURTHER CARE RETURN TO ER IF WORSE All discharge instructions reviewed with patient and/or family. Voiced understanding. Scripts Nitrofurantoin Monohyd/M-Cryst (Macrobid 100 mg Capsule) 100 Mg Capsule 100 MG PO BID, #20 CAP Prov: ENDY SOMMER DO 12/07/17 Ketorolac Tromethamine (Ketorolac Tromethamine) 10 Mg Tablet 10 MG PO Q6H for Pain, #15 TAB Prov: ENDY SOMMER DO 12/07/17 Ondansetron (Zofran Odt) 4 Mg Tab.rapdis 4-8 MG PO Q4H for Nausea/Vomiting, #10 TAB Prov: ENDY SOMMER DO 12/07/17 Tamsulosin HCl (Flomax) 0.4 Mg Cap 0.4 MG PO DAILY, #10 CAP Prov: ENDY SOMMER DO 12/07/17 ENDY SOMMER DO December 07, 2017 22:55
[2017-12-07] MEDS ORDERED: fentaNYL INJECTION 100 MCG/2 ML AMP IVP STA (23:10)
[2017-12-07 23:37] LABS: CLARITY,URINE SLIGHTLY CLOUDY; COLOR,URINE AMBER; GLUCOSE, URINE (UA) NEGATIVE (NEGATIVE); KETONES,URINE 2+ (NEGATIVE); LEUKOCYTE ESTERASE ,URINE 1+ (NEGATIVE); NITRITE,URINE NEGATIVE (NEGATIVE); PH,URINE 5 (5-9); PROTEIN,URINE 3+ (NEGATIVE); UROBILINOGEN,URINE NORMAL (NORMAL)
[2017-12-07 23:48] LABS: BACTERIA,URINE MODERATE /HPF; BILIRUBIN,URINE 1+ (NEGATIVE); WBC,URINE 50-100 /HPF
[2017-12-07 23:49] LABS: RBC,URINE TNTC /HPF
[2017-12-07 23:52] LABS: AMPHETAMINE SCREEN, URINE POSITIVE (NEGATIVE); BARBITURATE SCREEN URINE NEGATIVE (NEGATIVE); BENZODIAZEPINES SCREEN URINE NEGATIVE (NEGATIVE); CANNABINOID SCREEN, URINE NEGATIVE (NEGATIVE); COCAINE SCREEN URINE NEGATIVE (NEGATIVE); METHADONE STAT NEGATIVE (NEGATIVE); METHAMPHETAMINE SCREEN URINE S POSITIVE (NEGATIVE); OPIATE SCREEN URINE NEGATIVE (NEGATIVE); OXYCODONE STAT NEGATIVE (NEGATIVE); PROPOXYPHENE STAT NEGATIVE (NEGATIVE); TRICYCLIC ANTIDEPRESSANTS SCRE NEGATIVE (NEGATIVE)
[2017-12-08] MEDS ORDERED: RX-NITROFURANTOIN 100 MG (MACROBID) CAP PPK#2 PO STA (00:10)
[2017-12-08 00:33] VITALS: BP 144/100
== END 2017-12-08 00:33 | disposition home or self-care (01) ==
LOC: EDUNIT# 21:31 → ER 21:32
DX: N20.1 Calculus of ureter (principal); I10 Essential (primary) hypertension; F17.210 Nicotine dependence, cigarettes, uncomplicated; Z88.1 Allergy status to other antibiotic agents; Z88.0 Allergy status to penicillin
CPT/HCPCS: 36415; 74018; 74176; 80053; 80306; 81000; 82150; 83690; 85025; 87088; 96361; 96374; 96375

== ENCOUNTER 2018-03-02 08:33 | Emergency (ER) | payer SELFPAY ==
[~2018-03-02] VITALS: Ht 177.8 cm; Wt 117.9 kg
[~2018-03-02 08:33] MED LIST changes: +KETO10TA PO; +NITR-65 PO
--- OUTSIDE RECORDS SUMMARY | 2018-03-02 08:45 | XMS REPORT | Continuity of Care Document ---
Author Author [facility] Address Unknown Phone Unavailable Allergies Active Description Code Type Severity Reaction Onset Reported/Identified Relationship to Patient Clinical Status Yes Penicillins Drug Allergy N/A N/A 07/24/2010 Yes Penicillins [id number] Drug Allergy Mild RASH 06/28/2012 Yes levofloxacin [id number] Drug Allergy Moderate HIVES AND WELTS 12/01/2017 Medications There is no data. Problems Date Dx Coded Attending Type Code Diagnosis Diagnosed By 07/24/2010 NIMO HODGES DO 682.9 CELLULITIS AND ABSCESS OF UNSPECIFIED SITES 04/18/2011 NIMO HODGES DO V04.81 FLU DX (3 YRS AND ABOVE, IM) 04/18/2011 NIMO HODGES DO V06.1 TDAP DX 02/14/2014 KAREN KUO MD Ot 110.3 DERMATOPHYTOSIS OF GROIN 06/10/2014 ENDY SOMMER DO Ot 276.51 DEHYDRATION 06/10/2014 ENDY SOMMER DO Ot 558.9 NONINF GASTROENTERIT NEC 06/10/2014 ENDY SOMMER DO Ot 787.01 NAUSEA WITH VOMITING 07/28/2014 ORION FREEMAN APRN Ot 922.31 BACK CONTUSION 07/28/2014 ORION FREEMAN APRN Ot 959.19 OTH INJURY OF OTHER SITES OF TRUNK 07/28/2014 OIRON FREEMAN APRN Ot E000.8 OTHER EXTERNAL CAUSE STATUS 07/28/2014 ORION FREEMAN APRN Ot E849.0 ACCIDENT IN HOME 07/28/2014 ORION FREEMAN APRN Ot E880.9 FALL ON STAIR/STEP NEC 04/08/2015 KIM MCCARTHY MD Ot 558.9 NONINF GASTROENTERIT NEC 04/08/2015 KIM MCCARTHY MD Ot 787.01 NAUSEA WITH VOMITING 07/16/2017 SHREYA MCCARTHY MD Ot R05 COUGH 07/16/2017 SHREYA MCCARTHY MD Ot R06.00 DYSPNEA, UNSPECIFIED 07/17/2017 HOPE SPANGLER, [...] MCCARTHY MD Ot R06.00 DYSPNEA, UNSPECIFIED 07/28/2017 CAYDEN SPANGLER, ROBINSON Williamson Ot F17.210 NICOTINE DEPENDENCE, CIGARETTES, UNCOMPL 07/28/2017 ROBINSON RODARTE MD, Ot I10 ESSENTIAL (PRIMARY) HYPERTENSION 07/28/2017 ROBINSON [...] R10.9 UNSPECIFIED ABDOMINAL PAIN 11/22/2017 NEMESIO DORMAN MD Ot Z77.22 CNTCT W AND EXPSR TO ENVIRON TOBACCO SMO 11/22/2017 NEMESIO DORMAN MD Ot Z87.2 PERSONAL HISTORY OF DISEASES OF THE SKIN 11/23/2017 KEMAL DO ENDY K Ot F17.210 NICOTINE DEPENDENCE, CIGARETTES, UNCOMPL 11/23/2017 KEMAL DO ENDY K Ot I10 ESSENTIAL (PRIMARY) HYPERTENSION 11/23/2017 KEMAL DO ENDY K Ot N20.1 CALCULUS OF URETER 11/23/2017 KEMAL DO ENDY K Ot R10.9 UNSPECIFIED ABDOMINAL PAIN 11/23/2017 KEMAL DOJOSUEA K Ot Z87.2 PERSONAL HISTORY OF DISEASES OF THE SKIN 11/23/2017 KEMAL DO ENDY K Ot Z88.0 ALLERGY STATUS TO PENICILLIN 11/23/2017 KEMAL JOSUE MARIEA K Ot Z98.890 OTHER SPECIFIED POSTPROCEDURAL STATES 11/24/2017 NEMESIO DORMAN MD Ot I10 ESSENTIAL (PRIMARY) HYPERTENSION 11/24/2017 NEMESIO DORMAN MD Ot N20.1 CALCULUS OF URETER 11/24/2017 NEMESIO DORMAN MD Ot R10.9 UNSPECIFIED ABDOMINAL PAIN 11/24/2017 NEMESIO DORMAN MD Ot Z77.22 CNTCT W AND EXPSR TO ENVIRON TOBACCO SMO 11/24/2017 NEMESIO DORMAN MD Ot Z87.2 PERSONAL HISTORY OF DISEASES OF THE SKIN 11/26/2017 SHREYA MCCARTHY MD Ot R05 COUGH 11/26/2017 SHREYA MCCARTHY MD Ot R06.00 DYSPNEA, UNSPECIFIED 11/27/2017 ROBINSON RODARTE MD Ot F17.210 NICOTINE DEPENDENCE, CIGARETTES, UNCOMPL 11/27/2017 ROBINSON RODARTE MD Ot I10 ESSENTIAL (PRIMARY) HYPERTENSION 11/27/2017 ROBINSON RODARTE MD Ot S61.432A PUNCTURE WOUND W/O FOREIGN BODY OF LEFT 11/27/2017 ROBINSON RODARTE MD Ot T81.89XA OTH COMPLICATIONS OF PROCEDURES, NEC, IN 11/27/2017 ROBINSON RODARTE MD, Ot W29.8XXA CNTCT WITH OTHER POWERED HAND TOOLS AND 11/27/2017 ROBINSON RODARTE MD Ot Z91.14 PATIENT'S OTHER NONCOMPLIANCE WITH MEDIC 11/27/2017 NEMESIO DORMAN MD, Ot I10 ESSENTIAL (PRIMARY) HYPERTENSION 11/27/2017 NEMESIO DORMAN MD, Ot N20.1 CALCULUS OF URETER 11/27/2017 NEMESIO DORMAN MD Ot R10.9 UNSPECIFIED ABDOMINAL PAIN 11/27/2017 NEMESIO DORMAN MD Ot Z77.22 CNTCT W AND EXPSR TO ENVIRON TOBACCO SMO 11/27/2017 NEMESIO DORMAN MD, Ot Z87.2 PERSONAL HISTORY OF DISEASES OF THE SKIN 11/27/2017 ENDY SOMMER DO Ot F17.210 NICOTINE DEPENDENCE, CIGARETTES, UNCOMPL 11/27/2017 ENDY SOMMER DO Ot I10 ESSENTIAL (PRIMARY) HYPERTENSION 11/27/2017 ENDY SOMMER DO Ot N20.1 CALCULUS OF URETER 11/27/2017 ENDY SOMMER DO Ot R10.9 UNSPECIFIED ABDOMINAL PAIN 11/27/2017 ENDY SOMMER DO Ot Z87.2 PERSONAL HISTORY OF DISEASES OF THE SKIN 11/27/2017 ENDY SOMMER DO Ot Z88.0 ALLERGY STATUS TO PENICILLIN 11/27/2017 ENDY SOMMER DO Ot Z98.890 OTHER SPECIFIED POSTPROCEDURAL STATES 11/27/2017 JULIETH FIELD MD Ot N20.1 CALCULUS OF URETER 11/30/2017 JULIETH FIELD MD Ot N20.1 CALCULUS OF URETER 11/30/2017 JULIETH FIELD MD Ot Z01.818 ENCOUNTER FOR OTHER PREPROCEDURAL EXAMIN 12/01/2017 JULIETH FIELD MD, Ot I10 ESSENTIAL (PRIMARY) HYPERTENSION 12/01/2017 JULIETH FIELD MD Ot N20.1 CALCULUS OF URETER 12/02/2017 JULIETH FIELD MD, Ot N20.1 CALCULUS OF URETER 12/02/2017 JULIETH FIELD MD Ot Z01.818 ENCOUNTER FOR OTHER PREPROCEDURAL EXAMIN 12/03/2017 RASHIDA MD, JULIETH A Ot I10 ESSENTIAL (PRIMARY) HYPERTENSION 12/03/2017 RASHIDA SPANGLER, JULIETH Nelson Ot N20.1 CALCULUS OF URETER 12/08/2017 KEMAL DO, ENDY K Ot F17.210 NICOTINE DEPENDENCE, CIGARETTES, UNCOMPL 12/08/2017 KEMAL DO, ENDY K Ot I10 ESSENTIAL (PRIMARY) HYPERTENSION 12/08/2017 KEMAL DO, ENDY K Ot N20.1 CALCULUS OF URETER 12/08/2017 KEMAL DO, ENDY K Ot R10.31 RIGHT LOWER QUADRANT PAIN 12/08/2017 KEMAL DO, ENDY K Ot Z88.0 ALLERGY STATUS TO PENICILLIN 12/08/2017 KEMAL DO, ENDY K Ot Z88.1 ALLERGY STATUS TO OTHER ANTIBIOTIC AGENT 12/08/2017 FABIO SPANGLER, SHREYA Nieves Ot R05 COUGH 12/08/2017 SHREYA MCCARTHY MD Ot R06.00 DYSPNEA, UNSPECIFIED 12/08/2017 RASHIDA SPANGLER, JULIETH Nelson Ot N20.1 CALCULUS OF URETER 12/09/2017 KEMAL DO, ENDY K Ot F17.210 NICOTINE DEPENDENCE, CIGARETTES, UNCOMPL 12/09/2017 KEMAL DO, ENDY K Ot I10 ESSENTIAL (PRIMARY) HYPERTENSION 12/09/2017 KEMAL DO, ENDY K Ot N20.1 CALCULUS OF URETER 12/09/2017 KEMAL DO, ENDY K Ot R10.31 RIGHT LOWER QUADRANT PAIN 12/09/2017 KEMAL DO, ENDY K Ot Z88.0 ALLERGY STATUS TO PENICILLIN 12/09/2017 KEMAL DO, ENDY K Ot Z88.1 ALLERGY STATUS TO OTHER ANTIBIOTIC AGENT 12/13/2017 KEMAL DO, ENDY K Ot F17.210 NICOTINE DEPENDENCE, CIGARETTES, UNCOMPL 12/13/2017 KEMAL DO, ENDY K Ot I10 ESSENTIAL (PRIMARY) HYPERTENSION 12/13/2017 KEMAL DO, ENDY K Ot N20.1 CALCULUS OF URETER 12/13/2017 KEMAL DO, ENDY K Ot R10.31 RIGHT LOWER QUADRANT PAIN 12/13/2017 KEMAL DO, ENDY K Ot Z88.0 ALLERGY STATUS TO PENICILLIN 12/13/2017 KEMAL DO, ENDY K Ot Z88.1 ALLERGY STATUS TO OTHER ANTIBIOTIC AGENT 02/08/2018 FABIO SPANGLER, SHREYA Nieves Ot R05 COUGH 02/08/2018 SHREYA MCCARTHY MD Ot R06.00 DYSPNEA, UNSPECIFIED 02/08/2018 RASHIDA SPANGLER, JULIETH Nelson Ot N20.1 CALCULUS OF URETER 02/09/2018 JULIETH FIELD MD Ot N20.1 CALCULUS OF URETER Procedures There [...] 14:52 Bacteria identification in wound by culture [id number] NRG QUANTITY OF GROWTH Abundant Growth NRG AFB CULT T STAIN TISSUE/FLUID - 07/16/17 14:52 AFB CULT T STAIN TISSUE/FLUID TNP:Duplicate Order NRG Fungus culture - 07/16/17 14:52 [...] erythrocyte count by microscopy (number/high power field) [facility] NRG Automated urine sediment leukocyte count by [...] erythrocyte count by microscopy (number/high power field) [facility] NRG Automated urine sediment leukocyte count by [...] - 11/23/17 16:53 Lipase 21 U/L 8-78 Methicillin resistant Staphylococcus aureus (MRSA) screening culture - 10:55 Methicillin resistant Staphylococcus aureus (MRSA) screening culture NEG NR Complete blood count (CBC) with automated white blood cell (WBC) differential - 12/07/17 21:36 Blood leukocytes automated count (number/volume) 9.5 10*3/uL 4.3-11.0 Blood erythrocytes automated count (number/volume) 4.53 10*6/uL 4.35-5.85 Venous blood hemoglobin measurement (mass/volume) 14.5 g/dL 13.3-17.7 Blood hematocrit (volume fraction) 39 % 40-54 Automated erythrocyte mean corpuscular volume 87 [foz_us] 80-99 Automated erythrocyte mean corpuscular hemoglobin (mass per erythrocyte) 32 pg 25-34 Automated erythrocyte mean corpuscular hemoglobin concentration measurement ( mass/volume) 37 g/dL 32-36 Automated erythrocyte distribution width ratio 12.9 % 10.0-14.5 Automated blood platelet count (count/volume) 275 10*3/uL 130-400 Automated blood platelet mean volume measurement 9.1 [foz_us] 7.4-10.4 Automated blood neutrophils/100 leukocytes 66 % 42-75 Automated blood lymphocytes/100 leukocytes 25 % 12-44 Blood monocytes/100 leukocytes 7 % 0-12 Automated blood eosinophils/100 leukocytes 1 % 0-10 Automated blood basophils/100 leukocytes 0 % 0-10 Blood neutrophils automated count (number/volume) 6.3 10*3 1.8-7.8 Blood lymphocytes automated count (number/volume) 2.4 10*3 1.0-4.0 Blood monocytes automated count (number/volume) 0.7 10*3 0.0-1.0 Automated eosinophil count 0.1 10*3/uL 0.0-0.3 Automated blood basophil count (count/volume) 0.0 10*3/uL 0.0-0.1 Comprehensive metabolic panel - 12/07/17 21:36 Serum or plasma sodium measurement (moles/volume) 142 mmol/L 135-145 Serum or plasma potassium measurement (moles/volume) 3.7 mmol/L 3.6-5.0 Serum or plasma chloride measurement (moles/volume) 109 mmol/L 98-107 Carbon dioxide 20 mmol/L 21-32 Serum or plasma anion gap determination (moles/volume) 13 mmol/L 5-14 Serum or plasma urea nitrogen measurement (mass/volume) 18 mg/dL 7-18 Serum or plasma creatinine measurement (mass/volume) 1.40 mg/dL 0.60-1.30 Serum or plasma urea nitrogen/creatinine mass ratio 13 NRG Serum or plasma creatinine measurement with calculation of estimated glomerular filtration rate 58 NRG Serum or plasma glucose measurement (mass/volume) 93 mg/dL 70-105 Serum or plasma calcium measurement (mass/volume) 9.8 mg/dL 8.5-10.1 Serum or plasma total bilirubin measurement (mass/volume) 1.5 mg/dL 0.1-1.0 Serum or plasma alkaline phosphatase measurement (enzymatic activity/volume) 57 U/L 40-136 Serum or plasma aspartate aminotransferase measurement (enzymatic activity/ volume) 23 U/L 5-34 Serum or plasma alanine aminotransferase measurement (enzymatic activity/volume ) 38 U/L 0-55 Serum or plasma protein measurement (mass/volume) 7.2 g/dL 6.4-8.2 Serum or plasma albumin measurement (mass/volume) 4.6 g/dL 3.2-4.5 Serum or plasma amylase measurement (enzymatic activity/volume) - 12/07/17 21: 36 Serum or plasma amylase measurement (enzymatic activity/volume) 32 U /L 25-125 Lipase - 12/07/17 21:36 Lipase 14 U/L 8-78 Complete urinalysis with reflex to culture - 12/07/17 23:26 Urine color determination MAYANK NRG Urine clarity determination SLIGHTLY CLOUDY NRG Urine pH measurement by test strip 5 5-9 Specific gravity of urine by test strip 1.025 1.016- 1.022 Urine protein assay by test strip, semi-quantitative 3+ NEGATIVE Urine glucose detection by automated test strip NEGATIVE NEGATIVE Erythrocytes detection in urine sediment by light microscopy 5+ NEGATIVE Urine ketones detection by automated test strip 2+ NEGATIVE Urine nitrite detection by test strip NEGATIVE NEGATIVE Urine total bilirubin detection by test strip 1+ NEGATIVE Urine urobilinogen measurement by automated test strip (mass/volume) NORMAL NORMAL Urine leukocyte esterase detection by dipstick 1+ NEGATIVE Automated urine sediment erythrocyte count by microscopy (number/high power field) [facility] NRG Automated urine sediment leukocyte count by microscopy (number/high power field ) [HPF] NRG Bacteria detection in urine sediment by light microscopy MODERATE NRG Crystals detection in urine sediment by light microscopy NONE NRG Casts detection in urine sediment by light microscopy NONE NRG Mucus detection in urine sediment by light microscopy N NRG Complete urinalysis with reflex to culture YES NRG Urine drug screening test - 12/07/17 23:26 Urine phencyclidine detection by screening method NEGATIVE NEGATIVE Urine benzodiazepines detection by screening method NEGATIVE NEGATIVE Urine cocaine detection NEGATIVE NEGATIVE Urine amphetamines detection by screening method POSITIVE NEGATIVE Urine methamphetamine detection by screening method POSITIVE NEGATIVE Urine cannabinoids detection by screening method NEGATIVE NEGATIVE Urine opiates detection by screening method NEGATIVE NEGATIVE Urine barbiturates detection NEGATIVE NEGATIVE Screening urine tricyclic antidepressants detection NEGATIVE NEGATIVE Urine methadone detection by screening method NEGATIVE NEGATIVE Urine oxycodone detection NEGATIVE NEGATIVE Urine propoxyphene detection NEGATIVE NEGATIVE Bacterial urine culture - 12/07/17 23:26 Bacterial urine culture NG NRG Encounters ACCT No. Visit Date/Time Discharge Status Pt. Type Provider Facility Loc./Unit Complaint [id number] 06/02/2013 14:55:00 06/02/2013 23:59:59 CLS Outpatient NIMO HODGES DO [id number] 12/07/2017 21:32:00 12/08/2017 00:33:00 DIS Emergency KEMALENDY Garcia DO [facility] ER ABD PAIN [id number] 12/01/2017 10:16:00 12/01/2017 17:00:00 DIS Out[facility] [id number] 11/30/2017 05:40:00 11/30/2017 15:52:00 DIS Outpatient JULIETH FIELD MD [facility] PREOP BILATERAL URETERAL STONE [id number] 11/26/2017 14:44:00 11/26/2017 23:59:59 CLS Outpatient JULIETH FIELD MD [facility] RAD BILATERAL UERTERS STONES [id number] 11/23/2017 16:33:00 11/23/2017 19:09:00 DIS Emergency ENDY SOMMER DO [facility] ER KIDNEY STONES [id number] 11/22/2017 05:50:00 11/22/2017 09:02:00 DIS Emergency NEMESIO DORMAN MD [facility] ER LOWER BACK PAIN URINE DARK [id number] 07/28/2017 09:05:00 07/28/2017 11:25:00 DIS Emergency CAYDEN SPANGLER, ROBINSON Williamson [facility] ER DRILL INJ TO LEFT HAND [id number] 07/16/2017 06:12:00 07/17/2017 10:20:00 DIS Outpatient HOPE SPANGLER, MATEUSZ Aragon [facility] ABSCESS ON COCCYX [id number] 12/31/2015 11:15:00 12/31/2015 23:59:59 CLS Outpatient SHREYA MCCARTHY MD [facility] RAD COUGH [id number] 04/07/2015 22:24:00 04/08/2015 00:12:00 DIS Emergency KIM MCCARTHY MD [facility] ER VOMITING AND DIARRHEA [id number] 07/28/2014 13:10:00 07/28/2014 15:45:00 DIS Emergency ORION FREEMAN APRN [facility] ER FALL, BACK AND NECK PAIN [id number] 06/10/2014 04:49:00 06/10/2014 07:08:00 DIS Emergency ENDY SOMMER DO [facility] ER N/V/D;FEVER;LIGHT HEADED [id number] 02/14/2014 06:46:00 02/14/2014 08:39:00 DIS Emergency SHIELA SPANGLER, KAREN Nieves [facility] ER GROIN AREA PROBLEM [id number] 01/11/2013 14:16:00 01/11/2013 23:59:59 CLS Outpatient
[2018-03-02] MEDS ORDERED: NS IV 1000 ML 1,000 ML IV ONE (09:43)
[2018-03-02] MEDS ORDERED: KETOROLAC 30 MG/ML VIAL IVP STA (09:50)
[2018-03-02 10:12] LABS: BASOPHILS % (AUTO) 0 % (0-10); EOSINOPHILS # (AUTO) 0.1 10^3/uL (0.0-0.3); EOSINOPHILS % (AUTO) 2 % (0-10); HEMATOCRIT 37 % (40-54); HEMOGLOBIN 13.1 G/DL (13.3-17.7); LYMPHOCYTES # (AUTO) 0.8 X 10^3 (1.0-4.0); LYMPHOCYTES % (AUTO) 15 % (12-44); MEAN CORPUSCULAR HEMOGLOBIN 33 PG (25-34); MEAN CORPUSCULAR HGB CONC 36 G/DL (32-36); MEAN CORPUSCULAR VOLUME 91 FL (80-99); MEAN PLATELET VOLUME 9.2 FL (7.4-10.4); MONOCYTES # (AUTO) 0.7 X 10^3 (0.0-1.0); MONOCYTES % (AUTO) 13 % (0-12); NEUTROPHILS # (AUTO) 3.7 X 10^3 (1.8-7.8); NEUTROPHILS % (AUTO) 70 % (42-75); PLATELET COUNT 228 10^3/uL (130-400); RED CELL DISTRIBUTION WIDTH 13.4 % (10.0-14.5); WHITE BLOOD COUNT 5.3 10^3/uL (4.3-11.0)
[2018-03-02 10:35] LABS: ALANINE AMINOTRANSFERASE 48 U/L (0-55); ALBUMIN 4.1 GM/DL (3.2-4.5); ALKALINE PHOSPHATASE 76 U/L (40-136); AMYLASE 39 U/L (25-125); BILIRUBIN,TOTAL 1.2 MG/DL (0.1-1.0); BUN/CREATININE RATIO 10; CALCIUM 8.9 MG/DL (8.5-10.1); CARBON DIOXIDE 27 MMOL/L (21-32); CHLORIDE 103 MMOL/L (98-107); GFR ESTIMATED > 60; GLUCOSE 96 MG/DL (70-105); LIPASE 15 U/L (8-78); POTASSIUM 3.8 MMOL/L (3.6-5.0); SODIUM 136 MMOL/L (135-145); TOTAL PROTEIN 6.8 GM/DL (6.4-8.2)
--- NOTE | 2018-03-02 10:40 | Diagnostic Imaging Report ---
Portable erect AP chest at 1016h. INDICATION: Chest pain. The heart size is borderline enlarged and the heart does seem more prominent than noted on the prior exam of 12/31/2015. The apparent increase in size of the heart however may in part be due to the portable technique of this exam. As noted on the prior study there are a few crowded bronchovascular markings in the right infrahilar region. The lungs seem generally clear. There is no evidence for failure, pneumonia or a pleural effusion. Mediastinum is not widened. The osseous structures are intact. Impression: 1. There is borderline cardiomegaly but there is no evidence for an acute cardiopulmonary abnormality. 2. If clinical concern regarding an acute abnormality persists, then a followup PA and lateral chest would be recommended. Dictated by: Dictated on workstation # [id number]
--- NOTE | 2018-03-02 10:59 | ED General ---
General Chief Complaint: Abdominal/GI Problems Stated Complaint: CP//STOMACH PAIN Nursing Triage Note: PT AMBULATES INTO THE ED. COMPLAINING OF ABDOMINLA PAIN AND CHEST TIGHTNESS THAT BEGAN YESTERDAY UPON AWAKENING. PT VERBALIZES DIFFICULTY SWALLOWING. DENIES CHEST PAIN. PT STTES HE HAD KIDNEY STONES THREE MONTHS AGO. Nursing Sepsis Screen: No Definite Risk Source of Information: Patient Exam Limitations: No Limitations History of Present Illness Date Seen by Provider: Mar 02, 2018 Time Seen by Provider: 09:38 Initial Comments Here with report of generalized body aches that started when he woke up yesterday morning and has been worse since. He thought it would get better overnight but woke up this morning with even more body aches. He describes pain in his chest, back, abdomen, everywhere. Denies vomiting or diarrhea. Does not really describe the pain except for aching. States that he hasn't had all of her pain like that since he had his kidney stones 3 months ago. Timing/Duration: 1-2 Days Severity: Moderate Associated Systoms: Chest Pain; No Cough, No Diaphoresis, No Fever/Chills, No Headaches, No Nausea/Vomiting, No Shortness of Air, No Weakness Allergies and Home Medications Allergies Coded Allergies: levofloxacin (Unverified Allergy, Intermediate, HIVES AND WELTS AT AND ABOVE IV SITE, 12/01/17) Penicillins (Verified Allergy, Mild, RASH, 06/28/12) Home Medications Hydrocodone/Ibuprofen 1 Each Tablet, 1-2 EACH PO Q4H Prescribed by: ENDY SOMMER on 11/23/171827 Ketorolac Tromethamine 10 Mg Tablet, 10 MG PO Q6H Prescribed by: ENDY SOMMER on 12/07/172254 Nitrofurantoin Monohyd/M-Cryst 100 Mg Capsule, 100 MG PO BID Prescribed by: ENDY SOMMER on 12/07/172254 Ondansetron 4 Mg Tab.rapdis, 1-2 MG PO Q4H Prescribed by: ENDY SOMMER on 11/23/171827 Ondansetron 4 Mg Tab.rapdis, 4-8 MG PO Q4H Prescribed by: ENDY SOMMER on 12/07/172254 Oxycodone HCl 10 Mg Tablet, 10 MG PO every 4 hours PRN for pain Prescribed by: NEMESIO DORMAN on 11/22/17 0850 Tamsulosin HCl 0.4 Mg Cap, 0.4 MG PO DAILY Prescribed by: ENDY SOMMER on 11/23/17 1828 Tamsulosin HCl 0.4 Mg Cap, 0.4 MG PO DAILY Prescribed by: ENDY SOMMER on 12/07/17 2255 Patient Home Medication List Home Medication List Reviewed: Yes Review of Systems Constitutional: see HPI; No chills, No fever EENTM: no symptoms reported Respiratory: no symptoms reported Cardiovascular: see HPI; No edema, No palpitations Gastrointestinal: abdominal pain; No nausea Genitourinary: see HPI; No dysuria, No pain Musculoskeletal: joint pain, muscle pain Skin: no symptoms reported All Other Systems Reviewed Negative Unless Noted: Yes Past Ipptvkd-Cydbhz-Nnnsjh Hx Past Med/Social Hx: Reviewed Nursing Past Med/Soc Hx Patient Social History Alcohol Use: Denies Use Type Used: Cigarettes 2nd Hand Smoke Exposure: Yes Recent Foreign Travel: No Contact w/Someone Who Travel: No Recent Infectious Disease Expo: No Recent Hopitalizations: No Immunizations Up To Date Tetanus Booster (TDap): Unknown Date of Influenza Vaccine: May 31, 2012 Seasonal Allergies Seasonal Allergies: No Past Medical History Surgeries: Yes (ABSCESS ON BACK ;LITHOTRIPSY 12/01/17-DR. FIELD) Renal Respiratory: No Cardiac: Yes Hypertension Neurological: No Reproductive Disorders: No Genitourinary: Yes Kidney Stones Gastrointestinal: No Musculoskeletal: No Endocrine: No HEENT: No Loss of Vision: Denies Hearing Impairment: Denies Cancer: No Psychosocial: No Integumentary: No Blood Disorders: No Family Medical History Reviewed Nursing Family Hx No Pertinent Family Hx Physical Exam Vital Signs Vital Signs - First Documented 03/02/18 08:37 Temp 98.4 Pulse 103 Resp 20 B/P (MAP) 158/91 (113) Pulse Ox 97 O2 Delivery Room Air Capillary Refill : Less Than 3 Seconds Height, Weight, BMI Height: 5'10.00" Weight: 260lbs. 0.0oz. 117.672965um; 33.5 BMI Method:Estimated General Appearance: No Apparent Distress, WD/WN HEENT: PERRL/EOMI, Pharynx Normal Neck: Non Tender, Supple Respiratory: Lungs Clear, Normal Breath Sounds Cardiovascular: Regular Rate, Rhythm, No Murmur Gastrointestinal: Non Tender, Soft Back: Normal Inspection, No CVA Tenderness, No Vertebral Tenderness Extremity: Normal Range of Motion, Non Tender Neurologic/Psychiatric: Alert, Oriented x3 Skin: Normal Color, Warm/Dry Progress/Results/Core Measures Suspected Sepsis Recent Fever Within 48 Hours: No Infection Criteria Present: Suspected New Infection New/Unexplained Altered Menta: No Sepsis Screen: No Definite Risk SIRS Temperature:98.4 Pulse: 103 Respiratory Rate: 20 Laboratory Tests 03/02/18 10:03: White Blood Count 5.3 Blood Pressure 158 /91 Mean: 113 Laboratory Tests 03/02/18 10:03: Creatinine 1.10, Platelet Count 228, Total Bilirubin 1.2H Results/Orders Lab Results Laboratory Tests Test 03/02/18 10:03 03/02/18 11:25 Range/Units White Blood Count 5.3 4.3-11.0 10^3/uL Red Blood Count 4.00 L 4.35-5.85 10^6/uL Hemoglobin 13.1 L 13.3-17.7 G/DL Hematocrit 37 L 40-54 % Mean Corpuscular Volume 91 80-99 FL Mean Corpuscular Hemoglobin 33 25-34 PG Mean Corpuscular Hemoglobin Concent 36 32-36 G/DL Red Cell Distribution Width 13.4 10.0-14.5 % Platelet Count 228 130-400 10^3/uL Mean Platelet Volume 9.2 7.4-10.4 FL Neutrophils (%) (Auto) 70 42-75 % Lymphocytes (%) (Auto) 15 12-44 % Monocytes (%) (Auto) 13 H 0-12 % Eosinophils (%) (Auto) 2 0-10 % Basophils (%) (Auto) 0 0-10 % Neutrophils # (Auto) 3.7 1.8-7.8 X 10^3 Lymphocytes # (Auto) 0.8 L 1.0-4.0 X 10^3 Monocytes # (Auto) 0.7 0.0-1.0 X 10^3 Eosinophils # (Auto) 0.1 0.0-0.3 10^3/uL Basophils # (Auto) 0.0 0.0-0.1 10^3/uL Sodium Level 136 135-145 MMOL/L Potassium Level 3.8 3.6-5.0 MMOL/L Chloride Level 103 98-107 MMOL/L Carbon Dioxide Level 27 21-32 MMOL/L Anion Gap 6 5-14 MMOL/L Blood Urea Nitrogen 11 7-18 MG/DL Creatinine 1.10 0.60-1.30 MG/DL Estimat Glomerular Filtration Rate > 60 BUN/Creatinine Ratio 10 Glucose Level 96 70-105 MG/DL Calcium Level 8.9 8.5-10.1 MG/DL Magnesium Level 2.0 1.8-2.4 MG/DL Total Bilirubin 1.2 H 0.1-1.0 MG/DL Aspartate Amino Transf (AST/SGOT) 25 5-34 U/L Alanine Aminotransferase (ALT/SGPT) 48 0-55 U/L Alkaline Phosphatase 76 40-136 U/L Myoglobin 69.0 10.0-92.0 NG/ML Troponin I < 0.30 <0.30 NG/ML Total Protein 6.8 6.4-8.2 GM/DL Albumin 4.1 3.2-4.5 GM/DL Amylase Level 39 25-125 U/L Lipase 15 8-78 U/L Urine Color YELLOW Urine Clarity CLEAR Urine pH 6.5 5-9 Urine Specific Lawn 1.020 1.016-1.022 Urine Protein 1+ H NEGATIVE Urine Glucose (UA) NEGATIVE NEGATIVE Urine Ketones NEGATIVE NEGATIVE Urine Nitrite NEGATIVE NEGATIVE Urine Bilirubin NEGATIVE NEGATIVE Urine Urobilinogen NORMAL NORMAL MG/DL Urine Leukocyte Esterase 1+ H NEGATIVE Urine RBC (Auto) NEGATIVE NEGATIVE Urine RBC NONE /HPF Urine WBC 0-2 /HPF Urine Squamous Epithelial Cells RARE /HPF Urine Crystals PRESENT H /LPF Urine Amorphous Sediment FEW TOMMY URATES H /LPF Urine Bacteria NEGATIVE /HPF Urine Casts NONE /LPF Urine Mucus MODERATE H /LPF Urine Culture Indicated NO My Orders Orders - KAREN KUO MD Amylase (03/02/18 09:43) Cbc With Automated Diff (03/02/18 09:43) Comprehensive Metabolic Panel (03/02/18:43) Lipase (03/02/18:43) Magnesium (03/02/18:43) Troponin I (03/02/18:43) Accucheck Stat ONCE (03/02/18 09:43) Ekg Tracing (03/02/18:43) Chest 1 View, Ap/Pa Only (03/02/18:43) Saline Lock/Iv-Start (8/7/18 09:43) Ns Iv 1000 Ml (Sodium Chloride 0.9%) (03/02/18 09:43) Ua Culture If Indicated (03/02/18 09:50) Myoglobin Serum (03/02/18 09:50) Ketorolac Injection (Toradol Injection) (03/02/18 09:50) Medications Given in ED Current Medications Medications Dose Ordered Sig/Monika Route Start Time Stop Time Status Last Admin Dose Admin Sodium Chloride 1,000 ml @ 0 mls/hr Q0M ONCE IV 03/02/18 09:43 03/02/18 09:45 DC 03/02/18 10:08 1,000 MLS/HR Vital Signs/I&O 03/02/18 03/02/18 08:37 08:44 Temp 98.4 98.4 Pulse 103 103 Resp 20 20 B/P (MAP) 158/91 (113) 158/91 (113) Pulse Ox 97 97 O2 Delivery Room Air Room Air Capillary Refill : Less Than 3 Seconds Blood Pressure Mean: 113 Progress Note : Progress Note Seen and evaluated. IV, labs, UA, EKG and chest x-ray ordered. Normal saline 1 L bolus. Toradol 30 mg IV ordered. Monitor patient. 1240: Overall improved. Resting comfortably. No significant findings on labs or x-ray. I did discuss with the patient regarding his blood pressure and my concerns that he has hypertension that needs to be treated although not emergent currently. He reports that he will follow-up with her doctor to have his blood pressure rechecked to see if this is an ongoing issue. Discharged home with return precautions. Patient verbalize understanding instructions and agreement with plan ECG Initial ECG Impression Date: Mar 02, 2018 Initial ECG Impression Time: 10:22 Initial ECG Rate: 95 Initial ECG Rhythm: Normal Sinus Comment Sinus rhythm with leftward axis. No evidence of ST elevation CA. No previous available for comparison. Interpreted by me. Diagnostic Imaging Diagonstic Imaging: Xray Plain Films/CT/US/NM/MRI: chest Comments [facility] [place], [place] NAME: YAZMIN COX MED REC#: [id number] PT STATUS: REG ER : 1980 PHYSICIAN: KAREN KUO MD ADMIT DATE: 03/02/18/ER Draft Date of Exam:03/02/18 CHEST 1 VIEW, AP/PA ONLY Portable erect AP chest at 1016h. INDICATION: Chest pain. The heart size is borderline enlarged and the heart does seem more prominent than noted on the prior exam of 12/31/2015. The apparent increase in size of the heart however may in part be due to the portable technique of this exam. As noted on the prior study there are a few crowded bronchovascular markings in the right infrahilar region. The lungs seem generally clear. There is no evidence for failure, pneumonia or a pleural effusion. Mediastinum is not widened. The osseous structures are intact. Impression: 1. There is borderline cardiomegaly but there is no evidence for an acute cardiopulmonary abnormality. 2. If clinical concern regarding an acute abnormality persists, then a followup PA and lateral chest would be recommended. Dictated on workstation # [id number] Dict: 03/02/18 1035 Trans: 03/02/18 1040 [facility] [id number] Interpreted by: AURY EMERSON MD Electronically signed by: Departure Impression Primary Impression: Myalgia Additional Impression: Hypertension Qualified Codes: I10 - Essential (primary) hypertension Disposition: 01 HOME, SELF-CARE Condition: Stable Departure-Patient Inst. Decision time for Depature: 12:46 Referrals: SHREYA MCCARTHY MD (PCP/Family) Primary Care Physician Patient Instructions: Acute Abdomen (Belly Pain), Adult (DC), Chest Pain (DC), High Blood Pressure (DC) Add. Discharge Instructions: All discharge instructions reviewed with patient and/or family. Voiced understanding. Drink plenty of fluids and get some rest. You may take acetaminophen/Tylenol 1000 mg every 8 hours as needed for pain. You may take ibuprofen 800 mg every 8 hours as needed for pain. Follow up with your doctor in a few days for recheck. He also need to follow with her doctor regarding her blood pressure as this may need to be better controlled. Return for worse pain, fever, vomiting, weakness, breathing problems or other concerns as needed. KAREN KUO MD Mar 02, 2018 10:59
[2018-03-02 11:40] LABS: BILIRUBIN,URINE NEGATIVE (NEGATIVE); CLARITY,URINE CLEAR; COLOR,URINE YELLOW; GLUCOSE, URINE (UA) NEGATIVE (NEGATIVE); KETONES,URINE NEGATIVE (NEGATIVE); LEUKOCYTE ESTERASE ,URINE 1+ (NEGATIVE); NITRITE,URINE NEGATIVE (NEGATIVE); PH,URINE 6.5 (5-9); PROTEIN,URINE 1+ (NEGATIVE); UROBILINOGEN,URINE NORMAL (NORMAL)
[2018-03-02 11:49] LABS: BACTERIA,URINE NEGATIVE /HPF; WBC,URINE 0-2 /HPF
[2018-03-02 11:50] LABS: AMORPHOUS SEDIMENT,UR FEW AMOR URATES /LPF; SQUAMOUS EPITHELIAL CELL,UR RARE /HPF
[2018-03-02 12:55] VITALS: BP 138/96
== END 2018-03-02 12:55 | disposition home or self-care (01) ==
LOC: EDUNIT# 08:33 → ER 08:37
DX: M79.1 Myalgia (principal); I10 Essential (primary) hypertension; Z87.442 Personal history of urinary calculi; Z88.0 Allergy status to penicillin; Z88.8 Allergy status to other drugs, medicaments and biological substances; Z77.22 Contact with and (suspected) exposure to environmental tobacco smoke (acute) (chronic)
CPT/HCPCS: 36415; 71045; 80053; 81000; 82150; 83690; 83735; 83874; 84484; 85025; 93005; 96374

== ENCOUNTER 2018-08-31 10:58 | Emergency (ER) | payer SELFPAY ==
[~2018-08-31] VITALS: Ht 175.3 cm; Wt 109.3 kg
--- NOTE | 2018-08-31 11:29 | ED Upper Extremity ---
General Chief Complaint: Upper Extremity Stated Complaint: SHOULDER PAIN Nursing Triage Note: STATES HE FELL OFF HIS PORCH APPX 1030 LAST NOC LANDING ON RIGHT SHOULDER. DENIES HITTING HIS HEAD OR LOC. IBUPROFEN 800MG AT 0800 TODAY. Nursing Sepsis Screen: No Definite Risk Source: patient Exam Limitations: no limitations History of Present Illness Date Seen by Provider: Aug 31, 2018 Time Seen by Provider: 11:20 Initial Comments 37-year-old male who presents to the emergency room with complaints of right shoulder pain after falling off of his porch last night around 2230 after he slipped off of a step. He denies hitting his head, loss of consciousness, neck pain after the fall. He reports taking 800 mg of ibuprofen at 8 AM this morning has had increasing pain since. He does have full range of motion but has increased pain with range of motion. Onset: yesterday Pain/Injury Location: right shoulder Method of Injury: fell Modifying Factors: Worse With Movement Allergies and Home Medications Allergies Coded Allergies: levofloxacin (Unverified Allergy, Intermediate, HIVES AND WELTS AT AND ABOVE IV SITE, 12/01/17) Penicillins (Verified Allergy, Mild, RASH, 06/28/12) Home Medications Tramadol HCl 50 Mg Tablet, 50 MG PO Q6H PRN for PAIN-MODERATE TO SEVERE Prescribed by: VIDYA WOODALL on 08/31/18 1159 Past Tkvajgv-Ektjah-Egcyuy Hx Patient Social History Alcohol Use: Occasionally Uses Recreational Drug Use: No Type Used: Smokeless Tobacco 2nd Hand Smoke Exposure: Yes Recent Foreign Travel: No Contact w/Someone Who Travel: No Recent Infectious Disease Expo: No Recent Hopitalizations: No Immunizations Up To Date Tetanus Booster (TDap): Unknown Date of Influenza Vaccine: May 31, 2012 Seasonal Allergies Seasonal Allergies: No Past Medical History Surgeries: Yes (ABSCESS ON BACK ;LITHOTRIPSY 12/01/17-DR. FIELD) Renal Respiratory: No Cardiac: Yes Hypertension Neurological: No Reproductive Disorders: No Genitourinary: Yes Kidney Stones Gastrointestinal: No Musculoskeletal: No Endocrine: No HEENT: No Loss of Vision: Denies Hearing Impairment: Denies Cancer: No Psychosocial: No Integumentary: No Blood Disorders: No Family Medical History No Pertinent Family Hx Physical Exam Vital Signs Vital Signs - First Documented 08/31/18 11:13 Temp 98.4 Pulse 82 Resp 16 B/P (MAP) 154/93 (113) Pulse Ox 99 O2 Delivery Room Air Capillary Refill : Less Than 3 Seconds Height, Weight, BMI Height: 5'9.00" Weight: 241lbs. 0.0oz. 109.660246jd; 33.5 BMI Method:Stated Progress/Results/Core Measures Results/Orders My Orders Orders - VIDYA WOODALL Shoulder, Right, 3 Views (08/31/18 11:20) Vital Signs/I&O 08/31/18 11:13 Temp 98.4 Pulse 82 Resp 16 B/P (MAP) 154/93 (113) Pulse Ox 99 O2 Delivery Room Air Blood Pressure Mean: 113 Departure Impression Primary Impression: Right shoulder pain Disposition: HOME, SELF-CARE Condition: Stable/Unchanged Departure-Patient Inst. Decision time for Depature: 11:58 Referrals: SHREYA MCCARTHY MD (PCP/Family) Primary Care Physician Patient Instructions: Shoulder Sprain (DC) Add. Discharge Instructions: Ice to the sore areas at 20 minute intervals. You may use ibuprofen and Tylenol as directed by the bottle for pain relief. For pain unrelieved by Tylenol and ibuprofen you may use the Ultram as prescribed. Follow-up with your primary care provider within 1 week for recheck. Return back to the emergency room for worsening symptoms or concerns as needed. All discharge instructions reviewed with patient and/or family. Voiced understanding. Scripts Tramadol HCl (Ultram) 50 Mg Tablet 50 MG PO Q6H PRN for PAIN-MODERATE TO SEVERE, #10 TAB Prov: VIDYA WOODALL 08/31/18 VIDYA WOODALL Aug 31, 2018 11:29
--- NOTE | 2018-08-31 11:44 | Diagnostic Imaging Report ---
PATIENT HISTORY: Right shoulder pain after fall. TECHNIQUE: 3 views of the right shoulder COMPARISON: None FINDINGS: No acute fracture or dislocation is seen in the right shoulder. Alignment appears normal. Joint spaces are generally preserved. IMPRESSION: No acute osseous abnormalities seen in the right shoulder. Dictated by: Dictated on workstation # [id number]
[2018-08-31] MEDS ORDERED: TRAM-42 PO (11:59)
[2018-08-31 12:07] VITALS: BP 154/93
== END 2018-08-31 12:07 | disposition home or self-care (01) ==
LOC: EDUNIT# 10:58 → ER 10:59
DX: M25.511 Pain in right shoulder (principal); I10 Essential (primary) hypertension; Z87.442 Personal history of urinary calculi; Z88.1 Allergy status to other antibiotic agents; Z88.0 Allergy status to penicillin; Z77.22 Contact with and (suspected) exposure to environmental tobacco smoke (acute) (chronic); W10.8XXA Fall (on) (from) other stairs and steps, initial encounter
CPT/HCPCS: 73030

== ENCOUNTER 2019-02-03 22:35 | Emergency (ER) | payer BC, OTHER ==
[~2019-02-03] VITALS: Ht 175.3 cm; Wt 99.8 kg
[~2019-02-03 22:35] MED LIST changes: +TRAM-42 PO
--- OUTSIDE RECORDS SUMMARY | 2019-02-03 22:41 | XMS REPORT | Continuity of Care Document ---
Author Organization Unknown Address Unknown Allergies Active Description Code Type Severity Reaction Onset Reported/Identified Relationship to Patient Clinical Status Yes Penicillins Drug Allergy N/A N/A 07/24/2010 Yes Penicillins [id number] Drug Allergy Mild RASH 06/28/2012 Yes levofloxacin [id number] Drug Allergy Moderate HIVES AND WELTS 12/01/2017 [...] OTHER SITES OF TRUNK 07/28/2014 ORION FREEMAN PARAEDUCATOR Ot E000.8 OTHER EXTERNAL CAUSE STATUS 07/28/2014 ORION FREEMAN APRN Ot E849.0 ACCIDENT IN HOME 07/28/2014 ORION FREEMAN APRN Ot E880.9 FALL ON STAIR/STEP NEC 04/08/2015 FABIO SPANGLER, KIM Nelson Ot 558.9 NONINF GASTROENTERIT NEC 04/08/2015 KIM MCCARTHY MD Ot 787.01 NAUSEA WITH VOMITING 07/16/2017 FABIO SPANGLER, SHREYA Nieves Ot R05 COUGH 07/16/2017 SHREYA MCCARTHY MD [...] Ot L02.31 CUTANEOUS ABSCESS OF BUTTOCK 07/25/2017 MATEUSZ ARNETT MD Ot F17.210 NICOTINE DEPENDENCE, CIGARETTES, UNCOMPL 07/25/2017 HOPE SPANGLER, MATEUSZ Aargon Ot I10 ESSENTIAL (PRIMARY) HYPERTENSION 07/25/2017 HOPE [...] Ot R06.00 DYSPNEA, UNSPECIFIED 11/22/2017 NEMESIO DORMAN MD Ot I10 ESSENTIAL (PRIMARY) HYPERTENSION 11/22/2017 NEMESIO DORMAN MD Ot N20.1 CALCULUS OF URETER 11/22/2017 NEMESIO DORMAN MD Ot R10.9 UNSPECIFIED ABDOMINAL PAIN 11/22/2017 NEMESIO DORMAN MD, Ot Z77.22 CNTCT W AND EXPSR TO ENVIRON TOBACCO SMO 11/22/2017 NEMESIO DORMAN MD Ot Z87.2 PERSONAL HISTORY OF DISEASES OF THE SKIN 11/23/2017 KEMAL DO, ENDY K Ot F17.210 NICOTINE DEPENDENCE, CIGARETTES, UNCOMPL 11/23/2017 KEMAL DO, ENDY K Ot I10 ESSENTIAL (PRIMARY) HYPERTENSION 11/23/2017 KMEAL DO, ENDY K Ot N20.1 CALCULUS OF URETER 11/23/2017 KEMAL DOJOSUEA K Ot R10.9 UNSPECIFIED ABDOMINAL PAIN 11/23/2017 KEMAL ENDY K Ot Z87.2 PERSONAL HISTORY OF DISEASES OF THE SKIN 11/23/2017 KEMAL ENDY K Ot Z88.0 ALLERGY STATUS TO PENICILLIN 11/23/2017 KEMAL ENDY K Ot Z98.890 OTHER SPECIFIED POSTPROCEDURAL STATES 11/24/2017 NEMESIO DORMAN MD, Ot I10 ESSENTIAL (PRIMARY) HYPERTENSION 11/24/2017 NEMESIO DORMAN MD, Ot N20.1 CALCULUS OF URETER 11/24/2017 NEMESIO DORMAN MD, Ot R10.9 UNSPECIFIED ABDOMINAL PAIN 11/24/2017 NEMESIO [...] R10.9 UNSPECIFIED ABDOMINAL PAIN 11/27/2017 NEMESIO DORMAN MD, Ot Z77.22 CNTCT W [...] FOR OTHER PREPROCEDURAL EXAMIN 12/01/2017 JULIETH FIELD MD Ot I10 ESSENTIAL (PRIMARY) HYPERTENSION 12/01/2017 JULIETH FIELD MD Ot N20.1 CALCULUS OF URETER 12/02/2017 JULIETH FIELD MD Ot N20.1 CALCULUS OF URETER 12/02/2017 JULIETH FIELD MD Ot Z01.818 ENCOUNTER FOR OTHER PREPROCEDURAL EXAMIN 12/03/2017 JULIETH FIELD MD Ot I10 ESSENTIAL (PRIMARY) HYPERTENSION 12/03/2017 RASHIDA [...] MCCARTHY MD Ot R06.00 DYSPNEA, UNSPECIFIED 02/08/2018 JULIETH FIELD MD Ot N20.1 CALCULUS OF URETER 02/09/2018 JULIETH FIELD MD Ot N20.1 CALCULUS OF URETER 03/02/2018 Ot I10 ESSENTIAL (PRIMARY) HYPERTENSION 03/02/2018 Ot M79.1 MYALGIA 03/02/2018 Ot R07.9 CHEST PAIN, UNSPECIFIED 03/02/2018 Ot Z77.22 CNTCT W AND EXPSR TO ENVIRON TOBACCO SMO 03/02/2018 Ot Z87.442 PERSONAL HISTORY OF URINARY CALCULI 03/02/2018 Ot Z88.0 ALLERGY STATUS TO PENICILLIN 03/02/2018 Ot Z88.8 ALLERGY STATUS TO OTH DRUG/MEDS/BIOL SUB 06/08/2018 CAYDEN SPANGLER, ROBINSON Williamson Ot F17.210 NICOTINE DEPENDENCE, CIGARETTES, UNCOMPL 06/08/2018 ROBINSON RODARTE MD Ot I10 ESSENTIAL (PRIMARY) HYPERTENSION 06/08/2018 ROBINSON RODARTE MD Ot S61.432A PUNCTURE WOUND W/O FOREIGN BODY OF LEFT 06/08/2018 ROBINSON RODARTE MD Ot T81.89XA OTH COMPLICATIONS OF PROCEDURES, NEC, IN 06/08/2018 ROBINSON RODARTE MD Ot W29.8XXA CNTCT WITH OTHER POWERED HAND TOOLS AND 06/08/2018 ROBINSON RODARTE MD Ot Z91.14 PATIENT'S OTHER NONCOMPLIANCE WITH MEDIC 07/05/2018 SHREYA MCCARTHY MD Ot R05 COUGH 07/05/2018 SHREYA MCCARTHY MD Ot R06.00 DYSPNEA, UNSPECIFIED 07/05/2018 JULIETH FIELD MD Ot N20.1 CALCULUS OF URETER 07/06/2018 Ot I10 ESSENTIAL (PRIMARY) HYPERTENSION 07/06/2018 Ot M79.1 MYALGIA 07/06/2018 Ot R07.9 CHEST PAIN, UNSPECIFIED 07/06/2018 Ot Z77.22 CNTCT W AND EXPSR TO ENVIRON TOBACCO SMO 07/06/2018 Ot Z87.442 PERSONAL HISTORY OF URINARY CALCULI 07/06/2018 Ot Z88.0 ALLERGY STATUS TO PENICILLIN 07/06/2018 Ot Z88.8 ALLERGY STATUS TO OTH DRUG/MEDS/BIOL SUB 08/31/2018 FABIO SPANGLER, SHREYA Nieves Ot R05 COUGH 08/31/2018 SHREYA MCCARTHY MD Ot R06.00 DYSPNEA, UNSPECIFIED 08/31/2018 RASHIDA SPANGLER, JULIETH Nelson Ot N20.1 CALCULUS OF URETER 09/02/2018 VIDYA WOODALL Ot I10 ESSENTIAL (PRIMARY) HYPERTENSION 09/02/2018 VIDYA WOODALL Ot M25.511 PAIN IN RIGHT SHOULDER 09/02/2018 BAILEY WOODALLIS Ot W10.8XXA FALL (ON) (FROM) OTHER STAIRS AND STEPS, 09/02/2018 BAILEY WOODALLIS Ot Z77.22 CNTCT W AND EXPSR TO ENVIRON TOBACCO SMO 09/02/2018 CHARITYJAMIBAILEYIS Ot Z87.442 PERSONAL HISTORY OF URINARY CALCULI 09/02/2018 BAILEY WOODALLIS Ot Z88.0 ALLERGY STATUS TO PENICILLIN 09/02/2018 BAILEY WOODALLIS Ot Z88.1 ALLERGY STATUS TO OTHER ANTIBIOTIC AGENT Procedures There is no data. Results Test [...] Automated erythrocyte mean corpuscular hemoglobin concentration measurement (mass/volume) 36 g/dL 32-36 Automated erythrocyte distribution width ratio 13.0 % 10.0- 14.5 Automated blood platelet count (count/volume) 208 10*3/uL [...] Blood monocytes automated count (number/volume) 1.0 10*3 0.0- 1.0 Automated eosinophil count 0.2 10*3/uL 0.0-0.3 Automated [...] Serum or plasma aspartate aminotransferase measurement (enzymatic activity/volume) 20 U/L 5-34 Serum or plasma alanine aminotransferase measurement (enzymatic activity/volume) 36 U/L 0-55 Serum or plasma protein measurement (mass/volume) 6.8 g/dL 6.4-8.2 Serum or plasma albumin measurement (mass/volume) 3.9 g/dL 3.2-4.5 Methicillin resistant Staphylococcus aureus (MRSA) screening culture - 07/16/17 07:38 Methicillin resistant Staphylococcus aureus (MRSA) screening [...] 14:52 Bacteria identification in wound by culture [id number] NRG QUANTITY OF GROWTH Abundant Growth NRG [...] gravity of urine by test strip 1.025 1.016-1.022 Urine protein assay by test strip, semi-quantitative [...] sediment leukocyte count by microscopy (number/high power field) [HPF] NRG Bacteria detection in urine sediment [...] gravity of urine by test strip 1.015 1.016-1.022 Urine protein assay by test strip, semi-quantitative [...] sediment leukocyte count by microscopy (number/high power field) RARE NRG Bacteria detection in urine sediment [...] Automated erythrocyte mean corpuscular hemoglobin concentration measurement (mass/volume) 37 g/dL 32-36 Automated erythrocyte distribution width ratio 13.6 % 10.0- 14.5 Automated blood platelet count (count/volume) 230 10*3/uL [...] Blood monocytes automated count (number/volume) 0.3 10*3 0.0- 1.0 Automated eosinophil count 0.2 10*3/uL 0.0-0.3 Automated [...] Serum or plasma aspartate aminotransferase measurement (enzymatic activity/volume) 27 U/L 5-34 Serum or plasma alanine aminotransferase measurement (enzymatic activity/volume) 42 U/L 0-55 Serum or plasma protein measurement (mass/volume) 6.7 g/dL 6.4-8.2 Serum or plasma albumin measurement (mass/volume) 4.0 g/dL 3.2-4.5 Serum or plasma amylase measurement (enzymatic activity/volume) - 11/23/17 16:53 Serum or plasma amylase measurement (enzymatic activity/volume) 45 U/L 25-125 Lipase - 11/23/17 16:53 Lipase 21 U/L 8-78 Methicillin resistant Staphylococcus aureus (MRSA) screening culture - 12/01/17 10:55 Methicillin resistant Staphylococcus aureus (MRSA) screening culture NEG NRG Complete blood count (CBC) with automated [...] Automated erythrocyte mean corpuscular hemoglobin concentration measurement (mass/volume) 37 g/dL 32-36 Automated erythrocyte distribution width ratio 12.9 % 10.0- 14.5 Automated blood platelet count (count/volume) 275 10*3/uL [...] Blood monocytes automated count (number/volume) 0.7 10*3 0.0- 1.0 Automated eosinophil count 0.1 10*3/uL 0.0-0.3 Automated [...] Serum or plasma aspartate aminotransferase measurement (enzymatic activity/volume) 23 U/L 5-34 Serum or plasma alanine aminotransferase measurement (enzymatic activity/volume) 38 U/L 0-55 Serum or plasma protein measurement (mass/volume) 7.2 g/dL 6.4-8.2 Serum or plasma albumin measurement (mass/volume) 4.6 g/dL 3.2-4.5 Serum or plasma amylase measurement (enzymatic activity/volume) - 12/07/17 21:36 Serum or plasma amylase measurement (enzymatic activity/volume) 32 U/L 25-125 Lipase - 12/07/17 21:36 Lipase 14 U/L 8-78 Complete urinalysis with reflex to culture - 12/07/17 23:26 Urine color determination MAYANK NRG Urine clarity determination SLIGHTLY CLOUDY NRG Urine pH measurement by test strip 5 5-9 Specific gravity of urine by test strip 1.025 1.016-1.022 Urine protein assay by test strip, semi-quantitative [...] sediment leukocyte count by microscopy (number/high power field) [HPF] NRG Bacteria detection in urine sediment [...] 12/07/17 23:26 Bacterial urine culture NG NRG Complete blood count (CBC) with automated white blood cell (WBC) differential - 03/02/18 10:03 Blood leukocytes automated count (number/volume) 5.3 10*3/uL 4.3-11.0 Blood erythrocytes automated count (number/volume) 4.00 10*6/uL 4.35-5.85 Venous blood hemoglobin measurement (mass/volume) 13.1 g/dL 13.3-17.7 Blood hematocrit (volume fraction) 37 % 40-54 Automated erythrocyte mean corpuscular volume 91 [foz_us] 80-99 Automated erythrocyte mean corpuscular hemoglobin (mass per erythrocyte) 33 pg 25-34 Automated erythrocyte mean corpuscular hemoglobin concentration measurement (mass/volume) 36 g/dL 32-36 Automated erythrocyte distribution width ratio 13.4 % 10.0- 14.5 Automated blood platelet count (count/volume) 228 10*3/uL 130-400 Automated blood platelet mean volume measurement 9.2 [foz_us] 7.4-10.4 Automated blood neutrophils/100 leukocytes 70 % 42-75 Automated blood lymphocytes/100 leukocytes 15 % 12-44 Blood monocytes/100 leukocytes 13 % 0-12 Automated blood eosinophils/100 leukocytes 2 % 0-10 Automated blood basophils/100 leukocytes 0 % 0-10 Blood neutrophils automated count (number/volume) 3.7 10*3 1.8-7.8 Blood lymphocytes automated count (number/volume) 0.8 10*3 1.0-4.0 Blood monocytes automated count (number/volume) 0.7 10*3 0.0- 1.0 Automated eosinophil count 0.1 10*3/uL 0.0-0.3 Automated blood basophil count (count/volume) 0.0 10*3/uL 0.0-0.1 Comprehensive metabolic panel - 03/02/18 10:03 Serum or plasma sodium measurement (moles/volume) 136 mmol/L 135-145 Serum or plasma potassium measurement (moles/volume) 3.8 mmol/L 3.6-5.0 Serum or plasma chloride measurement (moles/volume) 103 mmol/L 98-107 Carbon dioxide 27 mmol/L 21-32 Serum or plasma anion gap determination (moles/volume) 6 mmol/L 5-14 Serum or plasma urea nitrogen measurement (mass/volume) 11 mg/dL 7-18 Serum or plasma creatinine measurement (mass/volume) 1.10 mg/dL 0.60-1.30 Serum or plasma urea nitrogen/creatinine mass ratio 10 NRG Serum or plasma creatinine measurement with calculation of estimated glomerular filtration rate > NRG Serum or plasma glucose measurement (mass/volume) 96 mg/dL 70-105 Serum or plasma calcium measurement (mass/volume) 8.9 mg/dL 8.5-10.1 Serum or plasma total bilirubin measurement (mass/volume) 1.2 mg/dL 0.1-1.0 Serum or plasma alkaline phosphatase measurement (enzymatic activity/volume) 76 U/L 40-136 Serum or plasma aspartate aminotransferase measurement (enzymatic activity/volume) 25 U/L 5-34 Serum or plasma alanine aminotransferase measurement (enzymatic activity/volume) 48 U/L 0-55 Serum or plasma protein measurement (mass/volume) 6.8 g/dL 6.4-8.2 Serum or plasma albumin measurement (mass/volume) 4.1 g/dL 3.2-4.5 Magnesium - 03/02/18 10:03 Magnesium 2.0 mg/dL 1.8-2.4 Serum or plasma troponin i.cardiac measurement (mass/volume) - 03/02/18 10:03 Serum or plasma troponin i.cardiac measurement (mass/volume) < ng/mL <0.30 Myoglobin, serum - 03/02/18 10:03 Myoglobin, serum 69.0 ng/mL 10.0-92.0 Serum or plasma amylase measurement (enzymatic activity/volume) - 03/02/18 10:03 Serum or plasma amylase measurement (enzymatic activity/volume) 39 U/L 25-125 Lipase - 03/02/18 10:03 Lipase 15 U/L 8-78 Complete urinalysis with reflex to culture - 03/02/18 11:25 Urine color determination YELLOW NRG Urine clarity determination CLEAR NRG Urine pH measurement by test strip 6.5 5-9 Specific gravity of urine by test strip 1.020 1.016-1.022 Urine protein assay by test strip, semi-quantitative 1+ NEGATIVE Urine glucose detection by automated test strip NEGATIVE NEGATIVE Erythrocytes detection in urine sediment by light microscopy NEGATIVE NEGATIVE Urine ketones detection by automated test strip NEGATIVE NEGATIVE Urine nitrite detection by test strip NEGATIVE NEGATIVE Urine total bilirubin detection by test strip NEGATIVE NEGATIVE Urine urobilinogen measurement by automated test strip (mass/volume) NORMAL NORMAL Urine leukocyte esterase detection by dipstick 1+ NEGATIVE Automated urine sediment erythrocyte count by microscopy (number/high power field) NONE NRG Automated urine sediment leukocyte count by microscopy (number/high power field) [HPF] NRG Bacteria detection in urine sediment by light microscopy NEGATIVE NRG Squamous epithelial cells detection in urine sediment by light microscopy RARE NRG Crystals detection in urine sediment by light microscopy PRESENT NRG Casts detection in urine sediment by light microscopy NONE NRG Mucus detection in urine sediment by light microscopy MODERATE NRG Complete urinalysis with reflex to culture NO NRG Amorphous sediment detection in urine sediment by light microscopy FEW TOMMY URATES NRG Encounters ACCT No. Visit Date/Time Discharge Status Pt. Type Provider Facility Loc./Unit Complaint [id number] 06/02/2013 14:55:00 06/02/2013 23:59:59 CLS Outpatient NIMO HODGES DO [id number] 08/31/2018 10:59:00 08/31/2018 12:07:00 DIS Outpatient VIDYA WOODALL [facility] ER SHOULDER PAIN [id number] 12/07/2017 21:32:00 12/08/2017 00:33:00 DIS Emergency KEMALENDY Garcia DO [facility] ER ABD PAIN [id number] 12/01/2017 10:16:00 12/01/2017 17:00:00 DIS Outpatient JULIETH FIELD MD [facility] SDC BILATERAL URETERAL STONE [id number] 11/30/2017 05:40:00 11/30/2017 15:52:00 DIS Outpatient JULIETH FIELD MD [facility] PREOP BILATERAL URETERAL STONE [id number] 11/26/2017 14:44:00 11/26/2017 23:59:59 CLS Outpatient JULIETH FIELD MD [facility] RAD BILATERAL UERTERS STONES [id number] 11/23/2017 16:33:00 11/23/2017 19:09:00 DIS Emergency ENDY SOMMER DO [facility] ER KIDNEY STONES [id number] 11/22/2017 05:50:00 11/22/2017 09:02:00 DIS Emergency DANDY SPANGLER, NEMESIO Piña [facility] ER LOWER BACK PAIN URINE DARK [id number] 07/28/2017 09:05:00 07/28/2017 11:25:00 DIS Emergency CAYDEN SPANGLER, ROBINSON Williamson [facility] ER DRILL INJ TO LEFT HAND [id number] 07/16/2017 06:12:00 07/17/2017 10:20:00 DIS Outpatient HOPE SPANGLER, MATEUSZ Aragon [facility] SDC ABSCESS ON COCCYX [id number] 12/31/2015 11:15:00 12/31/2015 23:59:59 CLS Outpatient FABIO SPANGLER, SHREYA Nieves [facility] RAD COUGH [id number] 04/07/2015 22:24:00 04/08/2015 00:12:00 DIS Emergency FABIO SPANGLER, KIM Nelson [facility] ER VOMITING AND DIARRHEA [id number] 07/28/2014 13:10:00 07/28/2014 15:45:00 DIS Emergency ORION FREEMAN APRN [facility] ER FALL, BACK AND NECK PAIN [id number] 06/10/2014 04:49:00 06/10/2014 07:08:00 DIS Emergency ENDY SOMMER DO [facility] ER N/V/D;FEVER;LIGHT HEADED [id number] 02/14/2014 06:46:00 02/14/2014 08:39:00 DIS Emergency KAREN KUO MD [facility] ER GROIN AREA PROBLEM [id number] 01/11/2013 14:16:00 01/11/2013 23:59:59 CLS Outpatient [id number] 03/02/2018 10:14:00 Document Registration
--- NOTE | 2019-02-03 23:28 | ED Integumentary General ---
General Chief Complaint: Skin/Wound Problems Stated Complaint: LUMP ON BACK Nursing Triage Note: cyst to lower back x3 weeks. Source: patient Exam Limitations: no limitations History of Present Illness Date Seen by Provider: Feb 03, 2019 Time Seen by Provider: 23:20 Initial Comments Patient's having some swelling and pain between his butt cheeks at the base of the sacrum. He says he had this once before and Dr. Thapa take him to surgery to take care of her. This would he wants today. No fever chills nausea redness sweats. He is using Tylenol for pain. No history of any medical illness. Does not follow with a primary care doctor. Has concerns about frequent getting up in the night to urinate always being thirsty and drinking lots of fluids. Never been tested for diabetes. Allergies and Home Medications Allergies Coded Allergies: levofloxacin (Unverified Allergy, Intermediate, HIVES AND WELTS AT AND ABOVE IV SITE, 12/01/17) Penicillins (Verified Allergy, Mild, RASH, 06/28/12) Home Medications No Active Prescriptions or Reported Meds Patient Home Medication List Home Medication List Reviewed: Yes Review of Systems Review of Systems Constitutional: No chills, No fever EENTM: No ear discharge, No hearing loss Respiratory: No cough, No dyspnea on exertion Cardiovascular: No chest pain, No palpitations Past Tyrbdec-Khxbsk-Xtzfio Hx Patient Social History Alcohol Use: Denies Use Recreational Drug Use: No Smoking Status: Former Smoker Type Used: Smokeless Tobacco Former Smoker, Quit: November 30, 2016 2nd Hand Smoke Exposure: Yes Recent Foreign Travel: No Contact w/Someone Who Travel: No Recent Infectious Disease Expo: No Recent Hopitalizations: No Immunizations Up To Date Tetanus Booster (TDap): Unknown Date of Influenza Vaccine: May 31, 2012 Seasonal Allergies Seasonal Allergies: No Past Medical History Surgeries: Yes (ABSCESS ON BACK ;LITHOTRIPSY 12/01/17-DR. FIELD) Renal Respiratory: No Cardiac: Yes Hypertension Neurological: No Reproductive Disorders: No Genitourinary: Yes Kidney Stones Gastrointestinal: No Musculoskeletal: No Endocrine: No HEENT: No Loss of Vision: Denies Hearing Impairment: Denies Cancer: No Psychosocial: No Integumentary: Yes Blood Disorders: No Family Medical History No Pertinent Family Hx Physical Exam Vital Signs Vital Signs - First Documented 02/03/19 22:43 Temp 98.7 Pulse 86 Resp 18 B/P (MAP) 146/95 (112) Pulse Ox 98 O2 Delivery Room Air Capillary Refill : Less Than 3 Seconds General Appearance: WD/WN, no apparent distress HEENT: PERRL/EOMI, pharynx normal Neck: full range of motion, normal inspection Cardiovascular: normal peripheral pulses, regular rate, rhythm, no edema Respiratory: no respiratory distress, no accessory muscle use Neurologic/Psychiatric: alert, normal mood/affect, oriented x 3 Skin: other (no erythema. Fluctuance in the area of the superior gluteal cleft.) Progress/Results/Core Measures Results/Orders Lab Results Laboratory Tests Test 02/03/19 23:34 Range/Units Glucometer 92 70-110 MG/DL My Orders Orders - ALFA HOLLOWAY Accucheck Stat ONCE (02/03/19 23:27) Vital Signs/I&O 02/03/19 22:43 Temp 98.7 Pulse 86 Resp 18 B/P (MAP) 146/95 (112) Pulse Ox 98 O2 Delivery Room Air Blood Pressure Mean: 112 Progress Progress Note : Time: 00:08 Progress Note Consistent with a pilonidal cyst however the patient does not appear to have cellulitis or abscess involved with it. He says the pain is not that bad. He had to have it drained by a surgeon Dr. Thapa in the past. He does not want to have it lanced today he just wants to get set up with a surgeon to have it taken care of again. We'll give him some Toradol for pain and a referral to Dr. Coronado. Accu-Chek unremarkable. Departure Impression Primary Impression: Pilonidal cyst without abscess Disposition: 01 HOME, SELF-CARE Condition: Stable Departure-Patient Inst. Decision time for Depature: 00:10 Referrals: BILLY CORONADO MD, JOHN D MD (PCP/Family) Primary Care Physician Patient Instructions: Pilonidal Cyst (DC) Add. Discharge Instructions: Call Dr. Coronado tomorrow to get set up your pilonidal cyst taken care of. If it becomes red and inflamed or swollen and critically painful it may need antibiotics and drainage. Your welcome to bring it back here until you see the surgeon. Tylenol and ibuprofen. Warm compresses. Establish care with a primary care doctor to discuss your other concerns. All discharge instructions reviewed with patient and/or family. Voiced understanding. Scripts No Active Prescriptions or Reported Meds Copy Copies To 1: BILLY CORONADO MD, TITUS J Feb 03, 2019 23:28
[2019-02-04 00:10] VITALS: BP 143/91
[2019-02-04] MEDS ORDERED: KETOROLAC 30 MG/ML VIAL IM ONE (00:15)
== END 2019-02-04 00:15 | disposition home or self-care (01) ==
LOC: EDUNIT# 22:35 → ER 22:37
DX: L05.91 Pilonidal cyst without abscess (principal); I10 Essential (primary) hypertension; Z87.442 Personal history of urinary calculi; Z88.1 Allergy status to other antibiotic agents; Z88.0 Allergy status to penicillin; Z87.891 Personal history of nicotine dependence
CPT/HCPCS: 82962

== ENCOUNTER → 2019-02-18 | Outpatient (CLI) | payer BC ==
[~2019-02-18] VITALS: Ht 177.8 cm; Wt 99.8 kg
== END | disposition home or self-care (01) ==
LOC: PREOP 02-17 06:08
PROVIDERS: ATTEND Surgery
DX: Z01.818 Encounter for other preprocedural examination (principal)

== ENCOUNTER 2019-05-21 07:09 | Emergency (ER) | payer BC ==
[~2019-05-21] VITALS: Ht 177 cm; Wt 103.6 kg
[2019-05-21 07:26] LABS: BASOPHILS % (AUTO) 0 % (0-10); EOSINOPHILS # (AUTO) 0.1 10^3/uL (0.0-0.3); EOSINOPHILS % (AUTO) 2 % (0-10); HEMATOCRIT 42 % (40-54); HEMOGLOBIN 14.4 G/DL (13.3-17.7); LYMPHOCYTES # (AUTO) 1.2 X 10^3 (1.0-4.0); LYMPHOCYTES % (AUTO) 22 % (12-44); MEAN CORPUSCULAR HEMOGLOBIN 31 PG (25-34); MEAN CORPUSCULAR HGB CONC 35 G/DL (32-36); MEAN CORPUSCULAR VOLUME 90 FL (80-99); MEAN PLATELET VOLUME 8.7 FL (7.4-10.4); MONOCYTES # (AUTO) 0.4 X 10^3 (0.0-1.0); MONOCYTES % (AUTO) 8 % (0-12); NEUTROPHILS # (AUTO) 3.7 X 10^3 (1.8-7.8); NEUTROPHILS % (AUTO) 68 % (42-75); PLATELET COUNT 206 10^3/uL (130-400); RED CELL DISTRIBUTION WIDTH 13.3 % (10.0-14.5); WHITE BLOOD COUNT 5.4 10^3/uL (4.3-11.0)
[2019-05-21 07:42] LABS: FIBRIN DEGRADATION PRODUCTS 0.39 UG/ML (0.00-0.49); INR 0.9 (0.8-1.4); PROTHROMBIN TIME PATIENT 12.4 SEC (12.2-14.7)
[2019-05-21 07:45] LABS: ALANINE AMINOTRANSFERASE 25 U/L (0-55); ALBUMIN 4.2 GM/DL (3.2-4.5); ALKALINE PHOSPHATASE 62 U/L (40-136); BILIRUBIN,TOTAL 0.7 MG/DL (0.1-1.0); BUN/CREATININE RATIO 12; CALCIUM 9.4 MG/DL (8.5-10.1); CARBON DIOXIDE 23 MMOL/L (21-32); CHLORIDE 107 MMOL/L (98-107); CREATININE SERUM 1.11 MG/DL (0.60-1.30); GFR ESTIMATED > 60; GLUCOSE 89 MG/DL (70-105); POTASSIUM 3.5 MMOL/L (3.6-5.0); SODIUM 143 MMOL/L (135-145)
--- NOTE | 2019-05-21 07:45 | ED Chest Pain ---
General Chief Complaint: General Problems/Pain Stated Complaint: LEG PAIN Nursing Triage Note: TO ED PER EMS WITH C/O OF L LOWER LEG PAIN X3 DAYS TODAY HAD CHEST PAIN LASTED FOR SHORT WHILE GONE ON ADMIT TO ED. PATIENT REPORTED TO EMS HE TOOK ASA WHEN CHEST PAIN STARTED. Nursing Sepsis Screen: No Definite Risk Source: patient Exam Limitations: no limitations History of Present Illness Date Seen by Provider: May 21, 2019 Time Seen by Provider: 07:12 Initial Comments Here with complaint of left leg pain for the last 3 days. Also had some chest pain for a short while his center of his chest and aching. That is gone now. Apparently took an aspirin when the chest pain started. EMS was summoned due to the chest pain and leg pain. On arrival his main complaint is the leg pain. He reports there is some swelling in the lower leg below the calf and around the ankle on the medial aspect. Denies any recent injury, long trips or car rides or any recent surgeries. Timing/Duration: 1 hour, gone now, other (left leg pain is been going on for 3- 4 days) Severity/Quality: aching Location: central Radiation: no radiation Activities at Onset: emotional stress ASA po CHARGE ENTRY SPECIALIST: Yes NTG SL CHARGE ENTRY SPECIALIST: No Associated Symptoms: No back pain, No nausea/vomiting, No shortness of breath, No weakness Allergies and Home Medications Allergies Coded Allergies: levofloxacin (Unverified Allergy, Intermediate, HIVES AND WELTS AT AND ABOVE IV SITE, 02/18/19) Penicillins (Verified Allergy, Mild, RASH, 02/18/19) Home Medications No Active Prescriptions or Reported Meds Patient Home Medication List Home Medication List Reviewed: Yes Review of Systems Review of Systems Constitutional: see HPI; No chills, No fever EENTM: No Symptoms Reported Respiratory: Denies Cough, Denies Shortness of Air Cardiovascular: Chest Pain; Denies Edema Gastrointestinal: Denies Abdominal Pain, Denies Diarrhea, Denies Nausea Genitourinary: No Symptoms Reported Musculoskeletal: see HPI, joint pain, joint swelling Skin: no symptoms reported Psychiatric/Neurological: Anxiety; Denies Weakness All Other Systems Reviewed Negative Unless Noted: Yes Past Isnddni-Jdzsks-Ncsfna Hx Past Med/Social Hx: Reviewed Nursing Past Med/Soc Hx Patient Social History Alcohol Use: Denies Use Recreational Drug Use: No Type Used: Cigars, Cigarettes, Smokeless Tobacco Former Smoker, Quit: November 30, 2016 2nd Hand Smoke Exposure: Yes (QUIT SMOKING CIGARETTES 2016, STILL SMOKES 1 CIGAR PER DAY) Recent Foreign Travel: No Contact w/Someone Who Travel: No Recent Infectious Disease Expo: No Recent Hopitalizations: No Immunizations Up To Date Tetanus Booster (TDap): Unknown Date of Influenza Vaccine: May 03, 2018 Seasonal Allergies Seasonal Allergies: No Past Medical History Surgeries: Yes (ABSCESS ON BACK, ESWL) Renal Respiratory: No Cardiac: Yes Hypertension Neurological: No Reproductive Disorders: No Sexually Transmitted Disease: No HIV/AIDS: No Genitourinary: Yes Kidney Stones Gastrointestinal: No Musculoskeletal: Yes (RECENT FINGER INJURY) Endocrine: No HEENT: No Loss of Vision: Denies Hearing Impairment: Denies Cancer: No Psychosocial: No Integumentary: No Blood Disorders: No Adverse Reaction/Blood Tranf: No (N/A) Family Medical History Reviewed Nursing Family Hx No Pertinent Family Hx Physical Exam Vital Signs Vital Signs - First Documented 05/21/19 07:09 Temp 37.2 Pulse 96 Resp 18 B/P (MAP) 172/119 (136) Pulse Ox 99 O2 Delivery Room Air Capillary Refill : Less Than 3 Seconds Height, Weight, BMI Height: 5'10.00" Weight: 220lbs. 0.0oz. 99.544849kd; 33.00 BMI Method:Stated General Appearance: No Apparent Distress, Anxious HEENT: PERRL/EOMI, Pharynx Normal Neck: Non Tender, Supple Respiratory: Lungs Clear, Normal Breath Sounds Cardiovascular: Regular Rate, Rhythm, No Murmur, Normal Peripheral Pulses Gastrointestinal: Non Tender, Soft Extremity: No Calf Tenderness, Other (tenderness and mild swelling to the medial aspect of the left ankle without deformity) Neurologic/Psychiatric: Alert, Oriented x3 Skin: Normal Color, Warm/Dry Progress/Results/Core Measures Results/Orders Lab Results Laboratory Tests Test 05/21/19 07:18 Range/Units White Blood Count 5.4 4.3-11.0 10^3/uL Red Blood Count 4.59 4.35-5.85 10^6/uL Hemoglobin 14.4 13.3-17.7 G/DL Hematocrit 42 40-54 % Mean Corpuscular Volume 90 80-99 FL Mean Corpuscular Hemoglobin 31 25-34 PG Mean Corpuscular Hemoglobin Concent 35 32-36 G/DL Red Cell Distribution Width 13.3 10.0-14.5 % Platelet Count 206 130-400 10^3/uL Mean Platelet Volume 8.7 7.4-10.4 FL Neutrophils (%) (Auto) 68 42-75 % Lymphocytes (%) (Auto) 22 12-44 % Monocytes (%) (Auto) 8 0-12 % Eosinophils (%) (Auto) 2 0-10 % Basophils (%) (Auto) 0 0-10 % Neutrophils # (Auto) 3.7 1.8-7.8 X 10^3 Lymphocytes # (Auto) 1.2 1.0-4.0 X 10^3 Monocytes # (Auto) 0.4 0.0-1.0 X 10^3 Eosinophils # (Auto) 0.1 0.0-0.3 10^3/uL Basophils # (Auto) 0.0 0.0-0.1 10^3/uL Prothrombin Time 12.4 12.2-14.7 SEC INR Comment 0.9 0.8-1.4 Activated Partial Thromboplast Time 27 24-35 SEC D-Dimer 0.39 0.00-0.49 UG/ML Sodium Level 143 135-145 MMOL/L Potassium Level 3.5 L 3.6-5.0 MMOL/L Chloride Level 107 98-107 MMOL/L Carbon Dioxide Level 23 21-32 MMOL/L Anion Gap 13 5-14 MMOL/L Blood Urea Nitrogen 13 7-18 MG/DL Creatinine 1.11 0.60-1.30 MG/DL Estimat Glomerular Filtration Rate > 60 BUN/Creatinine Ratio 12 Glucose Level 89 70-105 MG/DL Calcium Level 9.4 8.5-10.1 MG/DL Corrected Calcium 9.2 8.5-10.1 MG/DL Magnesium Level 2.0 1.6-2.4 MG/DL Total Bilirubin 0.7 0.1-1.0 MG/DL Aspartate Amino Transf (AST/SGOT) 22 5-34 U/L Alanine Aminotransferase (ALT/SGPT) 25 0-55 U/L Alkaline Phosphatase 62 40-136 U/L Myoglobin 51.6 10.0-92.0 NG/ML Troponin I < 0.028 <0.028 NG/ML Total Protein 7.0 6.4-8.2 GM/DL Albumin 4.2 3.2-4.5 GM/DL My Orders Orders - KAREN KUO MD Cbc With Automated Diff (05/21/19 07:17) Magnesium (05/21/19 07:17) Chest 1 View, Ap/Pa Only (05/21/19 07:17) Ekg Tracing (05/21/19 07:17) Cardiac Profile 1 (05/21/19 07:17) Comprehensive Metabolic Panel (05/21/19 07:17) Myoglobin Serum (05/21/19 07:17) Protime With Inr (05/21/19 07:17) Partial Thromboplastin Time (05/21/19 07:17) O2 (05/21/19 07:17) Monitor-Rhythm Ecg Trace Only (05/21/19 07:17) Lipid Panel (05/22/19 06:00) Ed Iv/Invasive Line Start (05/21/19 07:17) Fibrin Degradation Products (05/21/19 07:18) Ketorolac Injection (Toradol Injection) (05/21/19 08:05) Metoprolol Succinate (Xl) Tab (Toprol Xl (05/21/19 09:00) Vital Signs/I&O 05/21/19 07:09 Temp 37.2 Pulse 96 Resp 18 B/P (MAP) 172/119 (136) Pulse Ox 99 O2 Delivery Room Air Blood Pressure Mean: 136 Progress Progress Note : Progress Note Seen and evaluated on arrival by EMS. IV, labs, EKG, chest x-ray ordered. We will evaluate d-dimer. Monitor patient. 0850: Overall much better. D-dimer negative. He has declined x-ray of the left ankle. We will go ahead and initiate naproxen when necessary and also I will start him on Toprol-XL 25 mg daily with a one-month prescription. I have again gone over the importance of low pressure control and getting a doctor. I expressed my concern about injury to multiple organ systems related to long-term blood pressure problems and he verbalizes understanding. He states that he was getting get a doctor but had moved away but now is back down and [place] and he will get a doctor down there. We discussed [facility] as an option and he will follow up. Discharged home with return precautions. Patient verbalize understanding instructions and agreement with plan. Initial ECG Impression Date: May 21, 2019 Initial ECG Impression Time: 07:20 Initial ECG Rate: 87 Initial ECG Rhythm: Normal Sinus Comment Sinus rhythm and now with left axis deviation that is progression from previous. No evidence of ST elevation DC. Otherwise similar to 03/02/18. Interpreted by me. Diagnostic Imaging Diagonstic Imaging: Xray Plain Films/CT/US/NM/MRI: chest Comments NAME: YAZMIN [facility] REC#: [id number] PT STATUS: REG ER : 1980 PHYSICIAN: KAREN KUO MD ADMIT DATE: 05/21/19/ER Signed Date of Exam: 05/21/19 CHEST 1 VIEW, AP/PA ONLY INDICATION: Chest pain. Left lower extremity swelling Upright portable chest shows mild cardiomegaly with no failure. The lungs are clear. There is no effusion or pneumothorax. There is no acute bony abnormality. IMPRESSION: There is mild cardiomegaly with no failure. The chest is similar to a study from 03/02/2018. Dictated by: Dictated on workstation # [id number] Dict: 05/21/19 0752 Trans: 05/21/19816 Interpreted by: ADDI OLIVEIRA MD Electronically signed by: ADDI OLIVEIRA MD 05/21/19816 Departure Impression Primary Impression: Uncontrolled hypertension Additional Impressions: Pain of left lower extremity Acute chest pain Disposition: 01 HOME, SELF-CARE Condition: Improved Departure-Patient Inst. Decision time for Depature: 08:53 Referrals: SHREYA MCCARTHY MD (PCP/Family) Primary Care Physician [facility] Patient Instructions: Chest Pain (DC), High Blood Pressure (DC), Lower Extrem ity Muscle Strain (DC) Add. Discharge Instructions: All discharge instructions reviewed with patient and/or family. Voiced understanding. It is very important that you follow up with a doctor as soon as possible to recheck your blood pressure and to further evaluate blood pressure management for you. Also recheck for your leg pain. Take medications as prescribed. Return for worse pain, fever, vomiting, weakness, breathing problems or other concerns as needed. Scripts Metoprolol Succinate (Metoprolol Succinate) 25 Mg Tab.er.24h 25 MG PO DAILY for 30 Days, #30 TAB 0 Refills Prov: KAREN KUO MD 05/21/19 Naproxen (Naprosyn) 500 Mg Tablet 500 MG PO BID, #20 TAB 0 Refills Prov: KAREN KUO MD 05/21/19 KAREN KUO MD May 21, 2019 07:45
--- NOTE | 2019-05-21 07:54 | Diagnostic Imaging Report ---
INDICATION: Chest pain. Left lower extremity swelling Upright portable chest shows mild cardiomegaly with no failure. The lungs are clear. There is no effusion or pneumothorax. There is no acute bony abnormality. IMPRESSION: There is mild cardiomegaly with no failure. The chest is similar to a study from 03/02/2018. Dictated by: Dictated on workstation # [id number]
[2019-05-21] MEDS ORDERED: KETOROLAC 30 MG/ML VIAL IVP STA (08:05)
[2019-05-21] MEDS ORDERED: NAPR-1071 PO (08:57)
[2019-05-21] MEDS ORDERED: METO-387 PO (08:57)
[2019-05-21 09:09] VITALS: BP 147/97
== END 2019-05-21 09:09 | disposition home or self-care (01) ==
LOC: ER 07:09 → EDUNIT# 07:09 → ER 09:09
DX: M79.605 Pain in left leg (principal); I10 Essential (primary) hypertension; R07.9 Chest pain, unspecified; Z88.1 Allergy status to other antibiotic agents; Z87.442 Personal history of urinary calculi; Z88.0 Allergy status to penicillin; Z87.891 Personal history of nicotine dependence; Z77.22 Contact with and (suspected) exposure to environmental tobacco smoke (acute) (chronic)
CPT/HCPCS: 36415; 71045; 80053; 83735; 83874; 84484; 85025; 85379; 85610; 85730; 93005; 93041; 96374